=== PATIENT | female | born 1960 | race Caucasian/White ===

== ENCOUNTER 2024-03-08 15:11 | Outpatient (AMB) | payer OTHER, SELFPAY ==
--- NOTE | 2024-03-08 15:15 | HO.NEPHOV ---
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 She has been on lisinopril 20 mg and hydrochlorothiazide 25 mg a day for last 5 years. There has been no recent change in her medications. Ongoing medical problems include as above and in addition to that she has obstructive sleep apnea, rheumatoid arthritis. She does not take any NSAIDs. PENDING SALE TO [facility] Medical History (Updated 03/08/24 @ 15:49 by Tulio Jacobs MD) Type 2 diabetes mellitus Kidney disease Diabetes Severe obesity H/O screening mammography Rheumatoid arthritis Osteoarthritis of knee Obstructive sleep apnea NAFLD (nonalcoholic fatty liver disease) Morbid obesity Microalbuminuria Hypertension Hyperlipemia Matteo thyroiditis Fibromyalgia Elevated alkaline phosphatase level CKD (chronic kidney disease), stage I Acid indigestion Surgical History History of carpal tunnel release H/O arthroscopy of knee History of cholecystectomy History of appendectomy H/O endoscopy (~01/2011) H/O colonoscopy (~12/2021) Family History Mother Atrial fibrillation Diabetes mellitus Father Diabetes mellitus Review of Systems Const Denies fever(s) and Denies weight loss Card Denies chest pain Resp Denies cough and Denies hemoptysis GI Denies abdominal pain, Denies diarrhea and Denies nausea Musc Denies back pain Neuro Denies focal weakness Physical Exam Vital Signs: Last Vital Signs Pulse 104 H 03/08/24 15:20 BP 90/62 03/08/24 15:20 Pulse Ox 99 03/08/24 15:20 Oxygen Delivery Method Room Air 03/08/24 15:20 BMI result Body Mass Index 53.3 Awake. Comfortable. Neck is supple. Mucosa moist. Lungs clear Heart S1-S2 heard no gallop. Abdomen soft. Extremities no edema. No involuntary movements. No myoclonus. Results Reviewed Results Reviewed: Creatinine 1.13. Serum electrolytes normal. Nephrology Results: No Data to Display Assessment & Plan Assessment & Plan (1) Kidney disease: Code(s): N28.9 - Disorder of kidney and ureter, unspecified Category: Medical Plan 61-year-old man with a history of hypertension no diabetes medicine obesity with mild CKD. She was relatively low blood pressure. I suspect she has hypoperfusion contributing to decline in renal function. Recently had a renal ultrasonogram which did not reveal any obstruction. Underlying glomerul0 nephritis and interstitial disease seem unlikely, nevertheless we will rule that out. Recommendation Decrease hydrochlorothiazide from 20 mg daily down to 12.5 mg daily. Recheck renal panel in the next 2 weeks. The meantime encouraged her to stay on low-sodium diet Continue with same dose of lisinopril. Encouraged weight loss. Ordered basic urine studies including urine protein creatinine ratio. Orders: Orders Creatinine Urine 2 Weeks N28.9 - Disorder of kidney and ureter, unspecified UA and rflx microscopic 2 Weeks N28.9 - Disorder of kidney and ureter, unspecified Basic Metabolic Panel 2 Weeks N28.9 - Disorder of kidney and ureter, unspecified Total Protein Urine Random 2 Weeks N28.9 - Disorder of kidney and ureter, unspecified Coding Level of Care Code New Pt Level 5 (02999) Diagnoses Kidney disease N28.9
[2024-03-08 15:20] VITALS: BP 90/62; PULSE 104; O2SAT 99; BMI 53.3
== END 2024-03-08 15:41 | disposition home or self-care (01) ==
PROVIDERS: PCP Family Medicine; Referring Provider Family Medicine; Visit Provider Internal Medicine Hypertension Specialist
DX: I12.9 Hypertensive chronic kidney disease with stage 1 through stage 4 chronic kidney disease, or unspecified chronic kidney disease (principal); E11.22 Type 2 diabetes mellitus with diabetic chronic kidney disease; N18.2 Chronic kidney disease, stage 2 (mild)
CPT/HCPCS: 99204

== ENCOUNTER → 2024-03-08 15:11 | Outpatient (BNVA) | payer OTHER, SELFPAY | PROVIDERS: PCP Family Medicine; Referring Provider Family Medicine; Visit Provider Internal Medicine Hypertension Specialist | DX: I12.9 Hypertensive chronic kidney disease with stage 1 through stage 4 chronic kidney disease, or unspecified chronic kidney disease (principal); E11.22 Type 2 diabetes mellitus with diabetic chronic kidney disease; N18.2 Chronic kidney disease, stage 2 (mild); N28.9 Disorder of kidney and ureter, unspecified | CPT/HCPCS: 99202 ==

== ENCOUNTER 2024-03-22 10:46 | Outpatient (REF) | payer OTHER, SELFPAY ==
[2024-03-22 12:56] LABS: Anion Gap 14 (12-20); Blood Urea Nitrogen 19 mg/dL (9-16); Calcium 9.8 mg/dL (8.4-10.2); Carbon Dioxide 23 mmol/L (22-29); Chloride 106 mmol/L (96-108); Estimated Glomerular Filt Rate 44; Glucose Random 163 mg/dL (60-115); Potassium 4.8 mmol/L (3.3-5.1); Sodium 138 mmol/L (135-145)
[2024-03-22 13:19] LABS: Appearance Urine Clear; Color Urine Yellow; Glucose Urine UA >=1000 mg/dL (Negative); Leukocyte Esterase Urine Negative (Negative); Nitrite Urine Negative (Negative); Specific Gravity - Urine 1.015 (1.005-1.025); UMIC TRIGGER UA YES; Urine Blood Negative (Negative); Urine Ketones Negative (Negative); Urine Protein Negative (Neg-Trace)
[2024-03-22 13:23] LABS: Bacteria Urine 2+ (None Seen); RBC Urine 0-2 /HPF (0-2)
[2024-03-22 14:52] LABS: Creatinine Urine 47.44 mg/dL; Total Protein Urine Random < 7 mg/dL (<12)
== END 2024-03-22 10:47 | disposition home or self-care (01) ==
LOC: HO.LAB 10:46
PROVIDERS: PCP Family Medicine; Visit Provider Internal Medicine Hypertension Specialist
DX: N28.9 Disorder of kidney and ureter, unspecified (principal)
CPT/HCPCS: 36415; 80048; 81001; 82570; 84156

== ENCOUNTER 2024-03-27 14:51 | Outpatient (AMB) | payer OTHER, SELFPAY ==
[2024-03-27 14:53] VITALS: BP 106/72; PULSE 106; O2SAT 97; BMI 53.3
--- NOTE | 2024-03-27 14:53 | HO.NEPHOV ---
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 She has been on lisinopril 20 mg and hydrochlorothiazide 25 mg a day for last 5 years. There has been no recent change in her medications. Ongoing medical problems include as above and in addition to that she has obstructive sleep apnea, rheumatoid arthritis. She does not take any NSAIDs. 03/27/2024. Overall she is feeling well. After lowering hydrochlorothiazide to 12.5 mg blood pressure is better. No new complaints. [facility] Medical History (Updated 03/08/24 @ 15:49 by Tulio Jacobs MD) Type 2 diabetes mellitus Kidney disease Diabetes Severe obesity H/O screening mammography Rheumatoid arthritis Osteoarthritis of knee Obstructive sleep apnea NAFLD (nonalcoholic fatty liver disease) Morbid obesity Microalbuminuria Hypertension Hyperlipemia Matteo thyroiditis Fibromyalgia Elevated alkaline phosphatase level CKD (chronic kidney disease), stage I Acid indigestion Surgical History History of carpal tunnel release H/O arthroscopy of knee History of cholecystectomy History of appendectomy H/O endoscopy (~01/2011) H/O colonoscopy (~12/2021) Family History Mother Atrial fibrillation Diabetes mellitus Father Diabetes mellitus Physical Exam Vital Signs: Last Vital Signs Pulse 106 H 03/27/24 14:53 BP 106/72 03/27/24 14:53 Pulse Ox 97 03/27/24 14:53 Oxygen Delivery Method Room Air 03/27/24 14:53 BMI result Body Mass Index 53.3 Const General: comfortable; No acute distress Orientation/consciousness: patient oriented x3 Eyes General: appearance normal, both eyes and all related structures Visual Godfrey: normal visual godfrey by confrontation Neck Neck: Yes supple and Yes no JVD Resp Effort & Inspection: normal respiratory effort and respiratory effort not decreased Auscultation: rhonchi Cardio Palpation: no palpable S3 and no palpable S4 Heart sounds: no rubs GI Inspection: Yes normal to inspection Palpation (GI): Soft to palpation Percussion: Yes normal to percussion Auscultation: normal bowel sounds General: Yes no CVA tenderness Back/Spine/Pelvis Back: no CVA tenderness Skin General skin exam: no petechiae and no purpura Neuro General: patient oriented x3 and no focal motor deficits Extrem General: No clubbing and No edema Results Reviewed Nephrology Results: Sodium 138 mmol/L (135-145) 03/22/24 Potassium 4.8 mmol/L (3.3-5.1) 03/22/24 Chloride 106 mmol/L (96-108) 03/22/24 Carbon Dioxide 23 mmol/L (22-29) 03/22/24 BUN 19 mg/dL (9-16) H 03/22/24 Creatinine 1.24 mg/dL (0.5-1.4) 03/22/24 Calcium 9.8 mg/dL (8.4-10.2) 03/22/24 Urine Protein Negative mg/dL (Neg-Trace) 03/22/24 Urine Creatinine 47.44 mg/dL 03/22/24 Assessment & Plan Assessment & Plan (1) Kidney disease: Code(s): N28.9 - Disorder of kidney and ureter, unspecified Category: Medical Plan 61-year-old woman with a history of hypertension no diabetes medicine, obesity with mild CKD. She was relatively low blood pressure. I suspect she has hypoperfusion contributing to decline in renal function. Recently had a renal ultrasonogram which did not reveal any obstruction. Underlying glomerulo nephritis and interstitial disease seem unlikely, based on the bland urine sediments Recommendation Since the blood pressure is relatively low, Decrease lisinopril from 20 mg down to 10 mg a day especially since she has no significant proteinuria. Recheck renal panel in the next 2 -4 weeks. The meantime encouraged her to stay on low-sodium diet Encouraged weight loss. Orders: Orders Basic Metabolic Panel 4 Weeks N28.9 - Disorder of kidney and ureter, unspecified Medications: Changed From lisinopril 10 mg PO DAILY To lisinopril 10 mg PO DAILY 90 tabs 1RF From hydrochlorothiazide 12.5 mg PO DAILY To hydrochlorothiazide 12.5 mg PO DAILY 90 tabs 1RF Coding Level of Care Code Est Pt Level 4 (92643) Diagnoses Kidney disease N28.9
== END 2024-03-27 15:09 | disposition home or self-care (01) ==
PROVIDERS: PCP Family Medicine; Visit Provider Internal Medicine Hypertension Specialist
DX: N28.9 Disorder of kidney and ureter, unspecified (principal); E11.8 Type 2 diabetes mellitus with unspecified complications
CPT/HCPCS: 99213

== ENCOUNTER → 2024-03-27 14:51 | Outpatient (BNVA) | payer OTHER, SELFPAY | PROVIDERS: PCP Family Medicine; Visit Provider Internal Medicine Hypertension Specialist | DX: N28.9 Disorder of kidney and ureter, unspecified (principal); E11.22 Type 2 diabetes mellitus with diabetic chronic kidney disease; I12.9 Hypertensive chronic kidney disease with stage 1 through stage 4 chronic kidney disease, or unspecified chronic kidney disease; N18.1 Chronic kidney disease, stage 1 | CPT/HCPCS: 99212 ==

== ENCOUNTER 2024-04-25 12:36 | Outpatient (REF) | payer OTHER, SELFPAY ==
[2024-04-25 13:23] LABS: Appearance Urine Clear; Color Urine Straw; Glucose Urine UA Negative (Negative); Leukocyte Esterase Urine Negative (Negative); Nitrite Urine Negative (Negative); Specific Gravity - Urine 1.015 (1.005-1.025); Urine Blood Negative (Negative); Urine Ketones Negative (Negative); Urine Protein Negative (Neg-Trace)
[2024-04-25 14:04] LABS: Anion Gap 16 (12-20); Blood Urea Nitrogen 34 mg/dL (9-16); Calcium 9.8 mg/dL (8.4-10.2); Carbon Dioxide 24 mmol/L (22-29); Chloride 99 mmol/L (96-108); Estimated Glomerular Filt Rate 35; Potassium 4.6 mmol/L (3.3-5.1); Sodium 134 mmol/L (135-145)
[2024-04-25 14:06] LABS: Glucose Random 445 mg/dL (60-115)
== END 2024-04-25 12:37 | disposition home or self-care (01) ==
LOC: HO.LAB 12:36
PROVIDERS: PCP Family Medicine; Visit Provider Internal Medicine Hypertension Specialist
DX: N28.9 Disorder of kidney and ureter, unspecified (principal)
CPT/HCPCS: 36415; 80048; 81003

== ENCOUNTER 2024-05-21 15:19 | Outpatient (AMB) | payer OTHER, SELFPAY ==
[2024-05-21 15:21] VITALS: BP 90/62; PULSE 121; O2SAT 98; BMI 53.7
--- NOTE | 2024-05-21 15:21 | HO.NEPHOV_ITS ---
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 Required: No Accompanied by: Self / Same As Patient Allergies iodine Allergy (Unknown, Verified 05/21/24 15:23) Unknown liraglutide [From Victoza] Allergy (Unknown, Verified 05/21/24 15:23) Unknown semaglutide [From Ozempic] Allergy (Unknown, Verified 05/21/24 15:23) Unknown sulfa drugs Allergy (Unknown, Uncoded 03/05/24 15:57) Unknown Medication List - Last Reconciled 05/21/24 by Tulio Jacobs MD dulaglutide (Trulicity) mg subcut duloxetine 60 mg PO DAILY duloxetine (Cymbalta) 40 mg PO BID empagliflozin (Jardiance) 25 mg PO DAILY folic acid 1 mg PO DAILY gabapentin 200 mg PO BID glimepiride 8 mg PO DAILY hydroxychloroquine 300 mg PO QWEEK insulin degludec (Tresiba FlexTouch U-100 insulin) units subcut levothyroxine 100 mcg PO .weekly levothyroxine 150 mcg PO DAILY metformin 1,000 mg PO BID methotrexate sodium 7.5 mg PO QWEEK omeprazole 20 mg PO DAILY pravastatin 40 mg PO DAILY HPI Comments Details: Daphney is a pleasant middle-aged woman with a history of longstanding hypertension diabetes mellitus and obesity who was found to have elevated serum creatinine of 1.13 with EGFR of 54 mL/minute and hence this referral. She has been on lisinopril 20 mg and hydrochlorothiazide 25 mg a day for last 5 years. There has been no recent change in her medications. Ongoing medical problems include as above and in addition to that she has obstructive sleep apnea, rheumatoid arthritis. She does not take any NSAIDs. 03/27/2024. Overall she is feeling well. After lowering hydrochlorothiazide to 12.5 mg blood pressure is better. No new complaints. 05/20/2024. No specific complaints today. [facility] Medical History (Updated 03/08/24 @ 15:49 by Tulio Jacobs MD) Type 2 diabetes mellitus Kidney disease Diabetes Severe obesity H/O screening mammography Rheumatoid arthritis Osteoarthritis of knee Obstructive sleep apnea NAFLD (nonalcoholic fatty liver disease) Morbid obesity Microalbuminuria Hypertension Hyperlipemia Matteo thyroiditis Fibromyalgia Elevated alkaline phosphatase level CKD (chronic kidney disease), stage I Acid indigestion Surgical History History of carpal tunnel release H/O arthroscopy of knee History of cholecystectomy History of appendectomy H/O endoscopy (~01/2011) H/O colonoscopy (~12/2021) Family History Mother Atrial fibrillation Diabetes mellitus Father Diabetes mellitus Physical Exam Vital Signs: Last Vital Signs Pulse 121 H 05/21/24 15:21 BP 90/62 05/21/24 15:21 Pulse Ox 98 05/21/24 15:21 Oxygen Delivery Method Room Air 05/21/24 15:21 BMI result Body Mass Index 53.7 Comfortable Neck supple no JVD. Lungs entry equal no rales. Heart S1-S2 heard no gallop or rub. Abdomen soft nontender. Neuro alert awake oriented. No asterixis. Extremities no edema. Results Reviewed Nephrology Results: Sodium 134 mmol/L (135-145) L 04/25/24 Potassium 4.6 mmol/L (3.3-5.1) 04/25/24 Chloride 99 mmol/L (96-108) 04/25/24 Carbon Dioxide 24 mmol/L (22-29) 04/25/24 BUN 34 mg/dL (9-16) H 04/25/24 Creatinine 1.50 mg/dL (0.5-1.4) H 04/25/24 Calcium 9.8 mg/dL (8.4-10.2) 04/25/24 Urine Protein Negative mg/dL (Neg-Trace) 04/25/24 Urine Creatinine 47.44 mg/dL 03/22/24 Assessment & Plan Assessment & Plan (1) Kidney disease: Code(s): N28.9 - Disorder of kidney and ureter, unspecified Category: Medical (2) Hypertension: Code(s): I10 - Essential (primary) hypertension Category: Medical Plan 61-year-old woman with a history of hypertension no diabetes medicine, obesity with mild CKD. She was relatively low blood pressure. Creatinine is bumped up to 1.5 I suspect she has hypoperfusion contributing to decline in renal function. Recently had a renal ultrasonogram which did not reveal any obstruction. Underlying glomerulo nephritis and interstitial disease seem unlikely, based on the bland urine sediments Recommendation Since the blood pressure is relatively low, I will discontinue lisinopril 10 mg daily, especially since she has no significant proteinuria. Recheck renal panel in the next 2 -4 weeks. The meantime encouraged her to stay on low-sodium diet Encouraged weight loss. Orders: Orders Basic Metabolic Panel 2 Weeks I10 - Essential (primary) hypertension, N28.9 - Disorder of kidney and ureter, unspecified Medications: Discontinued lisinopril Discontinued Reason: Doctor's Order 10 mg PO DAILY 90 tabs 1RF hydrochlorothiazide Discontinued Reason: Patient no longer taking 12.5 mg PO DAILY 90 tabs 1RF Coding Level of Care Code Est Pt Level 4 (85168) Diagnoses Kidney disease N28.9 Hypertension I10
== END 2024-05-21 15:34 | disposition home or self-care (01) ==
PROVIDERS: PCP Family Medicine; Visit Provider Internal Medicine Hypertension Specialist
DX: I12.9 Hypertensive chronic kidney disease with stage 1 through stage 4 chronic kidney disease, or unspecified chronic kidney disease (principal); E11.22 Type 2 diabetes mellitus with diabetic chronic kidney disease; N18.2 Chronic kidney disease, stage 2 (mild)
CPT/HCPCS: 99214

== ENCOUNTER → 2024-05-21 15:19 | Outpatient (BNVA) | payer OTHER, SELFPAY | PROVIDERS: PCP Family Medicine; Visit Provider Internal Medicine Hypertension Specialist | DX: I12.9 Hypertensive chronic kidney disease with stage 1 through stage 4 chronic kidney disease, or unspecified chronic kidney disease (principal); E11.22 Type 2 diabetes mellitus with diabetic chronic kidney disease; E66.9 Obesity, unspecified; N18.9 Chronic kidney disease, unspecified; Z68.43 Body mass index [BMI] 50.0-59.9, adult | CPT/HCPCS: 99212 ==

== ENCOUNTER 2024-06-11 14:11 | Outpatient (REF) | payer OTHER, SELFPAY ==
--- OUTSIDE RECORDS SUMMARY | 2024-06-11 14:14 | XMS_ITS | Data Portability ---
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 Plan of Treatment Reminders Order Date Submit Date Provider Last Modified By Organization Details Last Modified Time Details Appointments None recorded. Lab FSH/estra diol 2012 013 BRITTANIE Not available 3 08:18:05 vitamin D 2012 013 BRITTANIE Not available 3 08:18:05 CBC w/diff & platelet 2012 013 BRITTANIE Not available 3 08:18:05 lyme screen 2012 013 BRITTANIE Not available 3 08:18:05 occult blood, screen 2012 013 [email or web address] 1 In-Office Order, Internal Use Only DO Not Attach Compendium DO Not Attach Compendium, Do Not Delete/merge, [id number] 3 10:25:05 cytology, Pap smear 2012 013 [email or web address] [facility], Cytopathology Service, [address] [place], [address], 3 09:03:47 pap test, thinprep, cervical 2014 015 BRITTANIE [facility], Cytopathology Service, [address] [place], [address], 5 11:16:19 fecal occult blood, stool 2014 015 [email or web address] 1 In-Office Order, Internal Use Only DO Not Attach Compendium DO Not Attach Compendium, Do Not Delete/merge, [id number] 5 08:34:35 pap test, thinprep, cervical 2016 017 [facility], Cytopathology Service, [address] [place], [address], 7 08:58:04 fecal occult blood, stool 2016 017 [email or web address] 1 In-Office Order, Internal Use Only DO Not Attach Compendium DO Not Attach Compendium, Do Not Delete/merge, [id number] 7 08:25:08 Referral None recorded. Procedures None recorded. Surgeries None recorded. Imaging MAMMO, screening , digital, bilateral 2012 013 [facility] (Radiology), [facility] [place], [address], 3 09:04:42 bone density study [address] [facility] (Radiology), [facility] [place], [address], 6 07:50:51 MAMMO, screening , digital, bilateral 2014 015 [facility] ([facility]), [address] [place], [address], 6 07:50:50 MAMMO, screening , digital, bilateral 2016 017 [facility] ([facility]), [address] [place], [address], 8 13:18:34 US, pelvis, transabdo elva + transvagi nal - right sided pelvic disomfort for a few weeks 2016 017 BRITTANIE [facility] ([facility]), [address] [place], [address], 7 13:03:41 Medication Orders nystatin 100,000 unit/gram topical powder 2014 015 [email or web address] [facility], [address], [place], [address], 7 08:06:40 clotrimaz ole-betam ethasone 1 %-0.05 % topical cream 2016 017 INTERFACE [facility], [address], [place], [address], 08:31:31 Patient TargetsNo targets recorded. Patient Instructions Encounter Date Encounter Id Patient Instructions Last Modified By Organization Details Last Modified Time 02/01/2013 [id number] She has what is possibly postmenopausal bleeding, check FSH and estradiol. If in the menopause range then she will need an ultrasound and an EMB, she is aware. She is overdue for mammogram, will go for this. She has fatigue and some adenopathy, check Lyme, cbc, and vitamin D. She appears to be doing well. She is advised to get 1500 mg of calcium daily into her diet and supplements combined. There is a health benefit with adequate vitamin D supplementation to at least 400 units daily, daily aerobic exercise of 30 minutes, and stress reduction. Monthly self breast exam was taught, and stressed, and is advised to call if she discovers any new mass in the breast. ?? Seat belt use for herself and passengers are advised. There are significant health benefits of becoming and remainig fit, with an optimal BMI. There is a potential reduction in chronic discomfort, diminished risks of hypertension, diabetes, and heart disease with the proper weight management. With a recommended BMI there can be improved mobility as she ages. Strategies to reach and maintain her target weight were discussed in detail. Not available 02/01/2013 10:25:05 02/12/2013 [id number] anemia: care instructions [email or web address] Not available 02/13/2013 07:46:17 She and I spoke at length about nutrition and health, exercise, and life longevity.?? She is having fatigue and we discussed how anemia plays into this. She is in process of investigation of the anemia with her PCP.?? He also checked her mild adenopathy and felt it was not clinically significant, but??he will follow it. ?? We discussed chronic illness and the benefit of a low fat, high fiber diet, with good balance. We also discussed the various vitamins and supplements that she might benefit from, including vitamin D, a good multivitamin, fish oil, and evening oil of primrose.?? She is advised to get 1500 mg of calcium daily into her diet and supplements combined. We discussed the benefits of adequate vitamin D supplementation to at least 2000 units daily, daily aerobic exercise of 30 minutes, and stress reduction. ?? The significant health benefits of becoming and remainig fit, with an optimal BMI, were also discussed. We discussed the potential reduction in chronic discomfort, the diminished risks of hypertension, diabetes, and heart disease with the proper weight management, and improved mobility as she ages. Strategies to reach and maintain her target weight wer discussed in detail, all questions answered. Face to face discussion 25 minutes Not available 02/12/2013 16:39:52 12/13/2014 [id number] She is here for annual exam, is doing well.?? Her anemia was followed by her doctor, no etiology was found, but it spontaneously resolved. She began taking a new diabetes med a few month ago, now she has nasty burps and gi upset, she is in a work up for this. Offered weight management , she will call if she elects to do this, is presently dong weight watchers and has lost 32 pounds in a year. She has a vitamin d deficiency, is taking a daily supplement. never had a bone density test, will order. She appears to be doing well. She is advised to get 1500 mg of calcium daily into her diet and supplements combined. There is a health benefit with adequate vitamin D supplementation to at least 400 units daily, daily aerobic exercise of 30 minutes, and stress reduction. Monthly self breast exam was taught, and stressed, and is advised to call if she discovers any new mass in the breast. ?? Seat belt use for herself and passengers are advised. There are significant health benefits of becoming and remainig fit, with an optimal BMI. There is a potential reduction in chronic discomfort, diminished risks of hypertension, diabetes, and heart disease with the proper weight management. With a recommended BMI there can be improved mobility as she ages. Strategies to reach and maintain her target weight were discussed in detail. Not available 12/13/2014 08:34:36 10/22/2016 [id number] self breast exam education [email or web address] Not available 10/22/2016 08:56:00 She is here for annual exam. Her fibromyalgia is stable, her diabetes improved with Trulicity. Her was just disabled from [facility] due to his back injury at work. Her hot flashes and night sweats have improved well. She requests rx for skin candidiasis. LAst bone denity was 2 years ago and normal. She appears to be doing well. She is advised to get 1500 mg of calcium daily into her diet and supplements combined. There is a health benefit with adequate vitamin D supplementation to at least 400 units daily, daily aerobic exercise of 30 minutes, and stress reduction. Monthly self breast exam was taught, and stressed, and is advised to call if she discovers any new mass in the breast. Seat belt use for herself and passengers are advised. There are significant health benefits of becoming and remainig fit, with an optimal BMI. There is a potential reduction in chronic discomfort, diminished risks of hypertension, diabetes, and heart disease with the proper weight management. With a recommended BMI there can be improved mobility as she ages. Strategies to reach and maintain her target weight were discussed in detail. Not available 10/22/2016 08:34:38 Reason for Referral None Reported. Results Created Date Observation Date Name Description Value Unit Range Abnormal Flag Note LastModifiedBy Organization Detail LastModifiedTime 10/22/2016 fecal occul t blood , stool Occult Blood negati ve Not Available In-Office Order Internal Use Only DO Not Attach Compendium DO Not Attach Compendium, Do Not Delete/merge, [id number] 10/22/2016 08:17:03 12/13/2014 fecal occul t blood , stool Occult Blood negati ve Not Available In-Office Order Internal Use Only DO Not Attach Compendium DO Not Attach Compendium, Do Not Delete/merge, [id number] 12/13/2014 08:04:22 02/01/2013 occul t blood , scree n Occult Blood negati ve Not Available In-Office Order Internal Use Only DO Not Attach Compendium DO Not Attach Compendium, Do Not Delete/merge, [id number] 02/01/2013 08:29:40 02/02/20 13 02/01/2013 pap1c ase [id number] thinp rep Pap, image d: negat khai for squam ous intra epith elial lesio n and malig avery . braxton jones zack, CT(as cp) (case elect nilay rendon martinez d 02 05 2013) adequ acy: satis facto ry. endoc ervic al trans forma tion zone compo nent prese nt. sourc e: thinp rep Pap, cervi berenice, image d clini berenice infor matio n: HPV if diagn osis of ASCUS . LMP 3 * cytop athol ogy servi nancie provi ded by [facility] at the above addre ss. Not Available [facility], Cytopathology Service [address] [place], [address], 02/06/2013 09:36:28 12/14/19 15 12/13/2014 pap, LB [id number] ThinP rep Pap, Image d: NEGAT KHAI FOR SQUAM OUS INTRA EPITH ELIAL LESIO N AND MALIG AVERY . Gem Fallon ams, CT( CP) (Case elect nilay rendon martinez d 12 17 2014) ADEQU ACY: Satis facto ry. Endoc ervic al/tr ansfo rmati on zone compo nent prese nt. SOURC E: ThinP rep Pap, Cervi berenice, Image d CLINI BERENICE INFOR MATIO N: HPV If Diagn osis of ASCUS . LMP , LPS NEG * Cytop athol ogy servi nancie provi ded by [facility] at the above addre ss. Not Available [facility], Cytopathology Service [address] [place], [address], 12/17/2014 11:16:19 10/23/19 17 10/22/2016 pap, LB [id number] ThinP rep Pap, Image d: NEGAT KHAI FOR SQUAM OUS INTRA EPITH ELIAL LESIO N AND MALIG AVERY . Mikhail Tavares a, CT( CP) (Case elect nilay rendon martinez d 10 25 2016) ADEQU ACY: Satis facto ry. Endoc ervic al/tr ansfo rmati on zone compo nent prese nt. SOURC E: ThinP rep Pap HPV IF ASCUS , Cervi berenice, Image d: CLINI BERENICE INFOR MATIO N: HPV If Diagn osis of ASCUS . LMP NEG, MENOP AUSE Not Available [facility], Cytopathology Service [address] [place], [address], 10/25/2016 13:41:05 05/02/20 13 04/24/2013 imagi ng/di agnos tic resul t No observ ation record ed. BRITTANIE Not Available 2012 11:35:39 12/21/19 15 12/11/2014 imagi ng/di agnos tic resul t No observ ation record ed. [facility] Not Available 2015 07:31:14 01/01/20 15 12/18/2014 imagi ng/di agnos tic resul t No observ ation record ed. [facility] Not Available 2014 08:22:42 02/16/20 16 02/06/2016 MAMMO , scree harleen, digit al, bilat eral No observ ation record ed. [facility] Not Available 2015 15:12:30 10/31/19 17 10/29/2016 US, pelvi s, trans abdom inal + trans vagin al [place], [address], 11/02/2016 10:02:22 10/19/19 18 MAMMO , scree harleen, digit al, bilat eral No observ ation record ed. Not Available 09/26 13:45:36 Result Notes None recorded. Problems Name Problem SNOMED Code Status Onset Date Resolution Date Notes Provider Name and Address Organization Details Recorded Time Candidiasis of skin 04331523 Active Shikha Garcia MD [address], [place], [address] , [place] [facility], 5 08:34:35 Fibromyalgia 829602342 Active 2016 [place] in [facility], 7 08:16:42 Anemia 939776883 Active Not Available [facility] 3 03:01:07 Postmenopausa l bleeding 43775859 Active Not Available [facility] 3 03:01:07 Menopausal syndrome 538937096 Active Shikha Garcia MD [address], [place], [address] , [place] - [facility], 5 08:34:35 Malaise and fatigue 150441312 Active Not Available [facility] 3 03:01:07 Vitamin D deficiency 30797505 Active Not Available [facility] 3 03:01:07 Problem Notes None recorded. Procedures Surgical History Date Name Laterality Status Provider Name and Address Organization Details Recorded Time 12/19/19 15 Most Recent Bone Density completed Luh Piña in [facility], 10/22/2016 08:15:48 06/27/19 04 Other completed Jeanine Piña in [facility], 02/01/2013 08:43:21 06/27/19 00 Appendectomy completed Jeanine Piña in [facility], 02/01/2013 08:43:21 06/27/18 98 Other completed Jeanine Piña in [facility], 02/01/2013 08:43:21 06/27/18 92 Tubal Ligation completed Jeanine Piña in [facility], 02/01/2013 08:43:21 06/27/18 92 Cholecystectomy completed Jeanine Piña in [facility], 02/01/2013 08:43:21 06/27/18 90 Caesarean Section completed Jeanine Piña in [facility], 02/01/2013 08:43:21 Imaging Results Imaging Date Name Status LastModified by Organization Details LastModified Time 04/24/2013 imaging/diagnostic result completed BRITTANIE Information not available 05/02/2013 11:35:39 12/11/2014 imaging/diagnostic result completed [facility] Information not available 12/01/2015 07:31:14 12/18/2014 imaging/diagnostic result completed [facility] Information not available 12/31/2014 08:22:42 02/06/2016 MAMMO, screening, digital, bilateral completed [facility] Information not available 02/16/2016 15:12:30 10/29/2016 US, pelvis, transabdominal + [place], [address], 11/02/2016 10:02:22 10/18/2017 MAMMO, screening, digital, bilateral completed Information not available 10/18/2017 13:45:36 Procedure Notes None recorded. Medical Equipment None Reported. Allergies Allergen ID Allergen Name Allergen Category Reaction Reaction Severity Criticality Documentation Date Start Date Code Code System Note Provider Name and Address Organization Details Recorded Time 9341 iodine medicatio n other Not available Not available 02/01/2013 5933 RxNorm verti go Jeanine hig[place]botham [place] - [facility], 3 08:43:21 Medications Name Sig Start Date Stop Date Status Note LastModified by Organization Details LastModified Time freestyle mis lancets active Not Available Not Available Not Available freestyle mis lite active Not Available Not Available Not Available freestyle gianna lite active Not Available Not Available Not Available metformin 500 mg tablet Take 2 tablets twice a day by oral route. active Not Available Not Available No t Available levothyroxi ne 137 mcg tablet active Not Available Not Available Not Available azithromyci n 250 mg tablet 10/22 completed Not Available Not Available Not Available lisinopril 20 mg tablet active Not Available Not Available Not Available OneTouch Ultra Test strips active Not Available Not Available Not Available clotrimazol e-betametha sone 1 %-0.05 % topical cream APPLY TO THE AFFECTED AND SURROUNDI NG AREAS OF SKIN BY TOPICAL ROUTE 2 TIMES PER DAY IN THE MORNING AND EVENING 2016 active Not Available Not Available Not Avai lable lisinopril 10 mg tablet Take 2 tablets every day by oral route. active Not Available Not Available No t Available glimepiride 4 mg tablet active Not Available Not Available Not Available omeprazole 20 mg capsule,del ayed release Take 2 capsules every day by oral route. active Not Available Not Available No t Available nystatin 100,000 unit/gram topical powder APPLY TO THE AFFECTED AREA(S) BY TOPICAL ROUTE 2 TIMES PER DAY 10/22 completed Not Available Not Available Not Available levothyroxi ne 112 mcg tablet Take 1 tablet every day by oral route. active Not Available Not Available No t Available oxycodone 5 mg tablet 10/22 completed Not Available Not Available Not Available cyclobenzap rine 5 mg tablet active Not Available Not Available Not Available tizanidine 2 mg capsule active prn Not Available Not Available Not Available zinc 10/22 completed Not Available Not Available Not Available Aspir-81 active Not Available Not Avai lable Not Available Stool Softener active qod Not Available Not Available Not Available Vitamin D3 active Not Available Not Av ailable Not Available Calcium 500 active Not Available Not A vailable Not Available Fish Oil 1,000 mg capsule active Not Available Not Available Not Available omeprazole 20 mg tablet,teresa yed release active Not Available Not Available Not Available turmeric (bulk) 10/22 completed Not Available Not Available Not Available Janumet XR 100 mg-1,000 mg tablet,exte nded release 10/22 completed Not Available Not Available Not Available hydrocodone 2.5 mg-acetamin ophen 325 mg tablet Take 1 tablet every 4 hours by oral route. 10/22 completed Not Available Not Available Not Available EpiPen 2-Ricardo 0.3 mg/0.3 mL injection, auto-inject or active Not Available Not Available Not Available Multi Vitamin active Not Available Not Available Not Available Bydureon 2 mg/0.65 mL subcutaneou s pen injector active Not Available Not Available Not Available Trulicity 0.75 mg/0.5 mL subcutaneou s pen injector active Not Available Not Available Not Available Vitals Date Recorded Body height Body weight Body mass index (BMI) Heart rate Systolic blood pressure Diastolic blood pressure Provider Name and Address Organization Details Last Updated DateTime 3 152.4 cm 501468. 98788 g 51.9 kg/m2 62 /min 144 mm[Hg] 61 mm[Hg] Jeanine Piña in [facility], 3 08:29:40 Date Recorded Body height Body weight Body mass index (BMI) Heart rate Systolic blood pressure Diastolic blood pressure Provider Name and Address Organization Details Last Updated DateTime 3 152.4 cm 274595. 625499 g 51.5 kg/m2 81 /min 139 mm[Hg] 64 mm[Hg] Jeanine Piña in [facility], 3 10:33:54 Date Recorded Body weight Heart rate Body mass index (BMI) Body height Systolic blood pressure Diastolic blood pressure Provider Name and Address Organization Details Last Updated DateTime 5 974488. 21118 g 88 /min 47.7 kg/m2 152.4 cm 135 mm[Hg] 78 mm[Hg] Jeanine Piña in [facility], 5 08:03:44 Date Recorded Body weight Heart rate Body height Body mass index (BMI) Systolic blood pressure Diastolic blood pressure Provider Name and Address Organization Details Last Updated DateTime 7 834108. 89 g 72 /min 152.4 cm 48.9 kg/m2 145 mm[Hg] 66 mm[Hg] Luh Sandersonparth Piña in [facility], 7 08:14:04 Social History Question Answer Notes LastModified by Organizat ion Details LastModified Time Tobacco Smoking Status Never Smoker Not Available [facility] 04/29/2020 03:19:37 What Is Your Level Of Alcohol Consumption? None [id number] Information not available 04/29/2020 What Is Your Level Of Caffeine Consumption? Occasional [id number] Information not available 04/29/2020 What Type Of Diet Are You Following? REGULAR [id number] Information not available 04/29/2020 Which Illicit Or Recreational Drugs Have You Used? No [id number] Information not available 04/29/2020 Do You Reside In Or Have You Traveled To An Area Where Ebola Virus Transmission Is Active? 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 [id number] Information not available 04/29/2020 How Many Days In The Past Year Have You Had A Heavy Drinking Consumption (4+ Female, 5+ Male)? 0 Information not available 10/22/2016 High Number Of Sexual Partners No Information not available 10/22/2016 To Which Gender Do You Self-identify? Female Information not available 10/22/2016 Marital Status freya Love n not available 02/01/2013 Are You Sexually Active? No [id number] Information not available 04/29/2020 How Much Tobacco Do You Smoke? No [id number] Information not available 04/29/2020 General Stress Level High Disabled Information not available 10/22/2016 Have You Recently (within The Last 12 Weeks, Or During A Current ) Traveled To Or Lived In A Zika-affected Area? No Information not available 10/22/2016 Sex: Unknown Functional Status Question Answer Note LastModified by Organization D etails LastModified Time What is your exercise level? Moderate [id number] Information not available 04/29/2020 Mental Status None recorded. Family History Relationship Description Onset Age of this Age Resolved Age Notes LastModified by Organization Details LastModified Time Father Heart disease previo usly record ed as Heart Proble m Not available 12/13/2014 08:09:35 Father Diabetes mellitus previo usly record ed as Diabet es Not available 12/13/2014 08:09:35 Mother Diabetes mellitus previo usly record ed as Diabet es Not available 12/13/2014 08:09:35 Medical History Condition Response Anesthesia complications Y High Blood Pressure Y Thyroid Problems Y Kidney or Bladder Problems N GI Problems N Depression N Lung Disease N Defects or Inherited Disease N Anemia Y History of Ovarian Cancer N History of Breast Cancer N BRCA testing in past N Osteopenia N Psychiatric Illness N Anxiety Disorder N Diabetes Y Arthritis Y Headaches or Migraines N Infertility N Asthma N History of Cancer N Endometriosis N Hepatitis N Heart Disease N Hypertension Y Osteoporosis N Gynecological History Statement/Question Response Date of LMP 08/16/2014 Most Recent Bone Density 12/18/2014 Menses Monthly N Age at Menarche 10 Current Control Method Tubal Ligat ion Age at First Child 30 Obstetrics History GPAL:G 3 P 2 0 1 2 Type Value Full Term 2 Spontaneous 1 Living 2 Total 3 Past Encounters Encounter ID Performer Location Encounter Start Date Encounter Closed Date Diagnosis/Indication Diagnosis SNOMED-CT Code Diagnosis ICD10 Code [id number] SHIKHA GARICA MD [address] [facility] [address] 02/01/2013 08:17:14 02/01/2013 12:52:13 [id number] Jeanine Bright SHIKHA GARCIA MD [address] [facility] [address] 02/12/2013 10:23:40 02/13/2013 09:23:55 [id number] SHIKHA GARCIA MD [address] [facility] [address] 12/13/2014 07:51:55 12/13/2014 09:39:09 Specialized medical examination 94612529 Screening for malignant neoplasm of rectum 973536408 Screening mammography 24 839443 Candidiasis of skin 4988 3006 Menopausal syndrome 1237 42495 [id number] MD SHIKHA Freitas MD [address] [facility] [address] 10/22/2016 08:00:50 10/22/2016 11:21:42 Specialized medical examination 80064386 Z01.419 Screening for malignant neoplasm of rectum 446786541 Z12.12 Screening mammography 24 401656 Z12.31 Candidiasis of skin 4988 3006 B37.2 Pain in pelvis 60731065 R10.2 Health Concerns Section Related Observation LastModified by Organization Detai ls LastModified Time None Recorded Concern Status LastModified by Organization Details LastModified Time None Recorded Advance Directives Directive None Recorded Payers Encounter Date Sequence Insurance Name Policy Number Policy Yan Covered Member ID Yan Member ID Guarantor Name 02/01/2013 1 [facility] ([facility] [place] [id number] Daphney Meek [id number] Daphney Meek 02/12/2013 1 [facility] ([facility] [place]) [id number] Daphney Meek [id number] Daphney Meek 12/13/2014 1 [facility] ([facility] [place]) [id number] Daphney Meek [id number] Daphney Meek 10/22/[address] [place] [address] ([facility] [place]) [id number] Tony Meek [id number] Daphney Meek Notes Date Note Type Note Provider Name and Address Organization Details Recorded Time 10/22/2016 text/html She is here for annual exam. Her fibromyalgia is stable, her diabetes improved with Trulicity. Her was just disabled from [facility] due to his back injury at work. Shikha Garcia MD [address] [place] [address],[address], [place], [id number], [place] - [facility], 10/22/2016 09:32:33 OBGyn Episode No OBEpisode recorded.
--- OUTSIDE RECORDS SUMMARY | 2024-06-11 14:14 | XMS_ITS | Continuity of Care Document ---
Author Organization [facility] Address [address] [place] [id number]- Care Team Providers Care Tire Fabric Inspector Name Role Phone Salo Landeros DO Primary Care Physician Encounter [facility] Date(s): 05/09/24 - 06/08/24 [facility] [address] [place] [id number] Encounter Type: Triage Allergies, Adverse Reactions, Alerts Substance Criticality Severity Reaction Reaction Severity Status sulfa drugs Active Ozempic (0.25 mg or 0.5 mg dose) Active iodine Active Victoza Active Immunizations Given and Recorded Vaccine Date Status Refusal Reason zoster vaccine, inactivated 10/08/21 Recorded zoster vaccine, inactivated 02/06/21 Recorded SARS-CoV-2 (COVID-19) mRNA BNT-162b2 vac 11/02/20 Recorded SARS-CoV-2 (COVID-19) mRNA BNT-162b2 vac 10/12/20 Recorded Medications Baqsimi One Pack 3 mg nasal powder = 3 mg, Naris, Left, Once, In one nostril; dose does not need to be inhaled for SEVERE hypoglycemia., # 1 each, 1 Refills, Soft Stop, 03/09/23 1:35:00 PM EDT, [facility] # [id number], Partial fill upon patient request if the prescription is for a schedule II opioid drug., 153, cm, 03/09/23 13:19:00 EDT, Height Start Date: 03/09/23 Status: Ordered Quantity: 1.0 Unit: each Repeat number: 2 Indication: Type 2 diabetes mellitus without complications CPAP Machine See Instructions, # 1 each, Maintenance, AutoCPAP 8-20 cm H20, use Daily when sleeping with detachable humidifier, 07/28/21 2:00:00 PM EST, Supply Start Date: 07/28/21 Status: Ordered Quantity: 1.0 Unit: each Repeat number: 1 cyclobenzaprine 10 mg oral tablet 1, tablet, By Mouth, 3 times a day, PRN, # 90 tablet, Refills 0, Tot. Refills 0, Acute, NEEDED FOR SPASM, 11/21/20 12:10:00 PM EDT, Route to Pharmacy Electronically, [facility] #[id number], 153, cm, 09/30/20 15:25:00 EDT, Height, 110.4, kg, 08/20/20 6:50:00 EST, Dry Weight Start Date: 11/21/20 Status: Ordered Quantity: 90.0 Unit: tablet Repeat number: 1 Cymbalta 20 mg oral enteric coated capsule 2 capsule = 40 mg, By Mouth, Daily, # 60 capsule, 0 Refills, Maintenance, 02/21/19 6:29:28 AM EDT, EC Capsule Start Date: 02/21/19 Status: Ordered Quantity: 60.0 Unit: capsule Repeat number: 1 Indication: Fibromyalgia dulaglutide 3 mg/0.5 mL subcutaneous solution 0.5 mL = 3 mg, Subcutaneous Injection, Every week, rotate injection sites weekly. Monitor blood sugars more closly when starting higher dose, # 2 mL, 4 Refills, Maintenance, 04/17/24 1:07:00 PM EDT, Solution, [facility] # 302, Partial fill upon patient request if the prescription is for a schedule II opioid drug., 153, cm, 01/23/24 15:38:00 EDT, Height Start Date: 04/17/24 Status: Ordered Quantity: 2.0 Unit: mL Repeat number: 5 folic acid 1 mg oral tablet 1 mg, 1, tablet, By Mouth, Daily, # 90 tablet, Refills 0, Maintenance, 08/24/23 10:50:00 AM EST, Partial fill upon patient request if the prescription is for a schedule II opioid drug. Start Date: 08/24/23 Status: Ordered Quantity: 90.0 Unit: tablet Repeat number: 1 Freestyle Lite Lancets See Instructions, # 90 each, Refills 6, Tot. Refills 6, Maintenance, Use lancets to test blood glucose 3x a day, E11.9, 02/19/20 3:48:00 PM EDT, Supply, 152, cm, 01/29/20 13:54:00 EDT, Height, 106.6, kg, 04/16/19 15:29:00 EDT, Dry Weight Start Date: 02/19/20 Status: Ordered Quantity: 90.0 Unit: each Repeat number: 7 Freestyle Lite Monitor See Instructions, # 1 each, Maintenance, Use glucose meter to monitor blood glucose 3x a day. E11.9, 02/19/20 3:47:00 PM EDT, Supply, 152, cm, 01/29/20 13:54:00 EDT, Height, 106.6, kg, 04/16/19 15:29:00 EDT, Dry Weight Start Date: 02/19/20 Status: Ordered Quantity: 1.0 Unit: each Repeat number: 1 Freestyle Lite Test Strips See Instructions, # 90 each, Refills 9, Tot. Refills 9, Maintenance, Use test strips to monitor blood glucose 3x a day, E11.9, 01/04/24 11:31:00 AM EDT, Supply, 153, cm, 01/04/24 11:12:00 EDT, Height Start Date: 01/04/24 Status: Ordered Quantity: 90.0 Unit: each Repeat number: 10 gabapentin 100 mg oral capsule 100 mg, 1, capsule, By Mouth, 2 times a day, # 60 capsule, Refills 0, Tot. Refills 0, Maintenance, 02/03/23 2:30:00 PM EDT, Route to Pharmacy Electronically, [facility] # 302, Partial fill upon patient request if the prescription is for a schedule II opioid drug., 153, cm, 06/15/22 9:13:00 EST, Height Start Date: 02/03/23 Status: Ordered Quantity: 60.0 Unit: capsule Repeat number: 1 glimepiride 2 mg oral tablet 4 tablet, By Mouth, Daily, # 120 tablet, 0 Refills, Maintenance, 05/23/24 3:18:00 PM EST, [facility] #[id number], 153, cm, 05/03/24 12:59:00 EST, Height Start Date: 05/23/24 Status: Ordered Quantity: 120.0 Unit: tablet Repeat number: 1 Jardiance 25 mg oral tablet 1 tablet, By Mouth, Daily in AM, # 30 tablet, 11 Refills, Maintenance, 04/09/24 1:00:00 PM EDT, [facility] #[id number], 153, cm, 01/23/24 15:38:00 EDT, Height Start Date: 04/09/24 Status: Ordered Quantity: 30.0 Unit: tablet Repeat number: 1 levothyroxine 150 mcg (0.15 mg) oral tablet 1 tablet, By Mouth, Daily, # 90 tablet, 1 Refills, Maintenance, 02/10/24 1:40:00 PM EDT, [facility] # 302, 153, cm, 01/23/24 15:38:00 EDT, Height Start Date: 02/10/24 Status: Ordered Quantity: 90.0 Unit: tablet Repeat number: 2 Levoxyl 0.1 mg oral tablet See Instructions, 100mcg po every Tuesday, # 30 tablet, 0 Refills, Maintenance, 01/26/24 5:52:00 PM EDT, Tablet, [facility] # 302, Partial fill upon patient request if the prescription is for a schedule II opioid drug., 153, cm, 01/23/24 15:38:00 EDT, Height Start Date: 01/26/24 Status: Ordered Quantity: 30.0 Unit: tablet Repeat number: 1 metFORMIN 500 mg oral tablet 1 tablet = 500 mg, By Mouth, 2 times a day, type 2 DM 30 day supply., # 60 tablet, 6 Refills, Maintenance, 03/30/24 3:38:00 PM EDT, [facility] # 302, 153, cm, 01/23/24 15:38:00 EDT, Height Start Date: 03/30/24 Status: Ordered Quantity: 60.0 Unit: tablet Repeat number: 7 methotrexate 2.5 mg oral tablet 3 tablet = 7.5 mg, By Mouth, Every week, # 4 tablet, 0 Refills, Maintenance, 08/24/23 10:50:00 AM EST, Tablet, Partial fill upon patient request if the prescription is for a schedule II opioid drug. Start Date: 08/24/23 Status: Ordered Quantity: 4.0 Unit: tablet Repeat number: 1 omeprazole 20 mg oral enteric coated capsule 1 capsule, By Mouth, Daily, # 90 capsule, 1 Refills, Maintenance, 05/17/24 8:54:00 AM EST, [facility] # [facility], 153, cm, 05/03/24 12:59:00 EST, Height Start Date: 05/17/24 Status: Ordered Quantity: 90.0 Unit: capsule Repeat number: 2 Pen [place], 31 G x 5 mm BD Ultra Fine III See Instructions, # 100 each, Refills 3, Tot. Refills 3, Maintenance, Use to inject insulin once daily. E11.65, 06/07/24 1:43:00 PM EST, Compound, 153, cm, 05/03/24 12:59:00 EST, Height Start Date: 06/07/24 Stop Date: 10/05/24 Status: Ordered Quantity: 100.0 Unit: each Repeat number: 4 pravastatin 40 mg oral tablet 1 tablet, By Mouth, Daily, # 90 tablet, 1 Refills, Maintenance, 01/15/24 1:24:00 PM EDT, [facility], 153, cm, 01/04/24 11:12:00 EDT, Height Start Date: 01/15/24 Status: Ordered Quantity: 90.0 Unit: tablet Repeat number: 2 Tresiba FlexTouch 100 units/mL subcutaneous solution See Instructions, Inject 40 units subcutaneous daily E11.9, # 15 mL, 11 Refills, Maintenance, 05/09/24 11:15:00 AM EST, Solution, [facility] # 302, Partial fill upon patient request if the prescription is for a schedule II opioid drug., 153, cm, 05/03/24 12:59:00 EST, Height Start Date: 05/09/24 Status: Ordered Quantity: 15.0 Unit: mL Repeat number: 12 Problem List Condition Confirmation Course Effective Dates Status H ealth Status Informant Elevated alkaline phosphatase level Confirmed Active Severe obesity (BMI >= 40) Confirmed Active Fibromyalgia Confirmed Active Matteo's thyroiditis Confirmed Active Hyperlipidemia Confirmed Active Hypertension Confirmed Active Acid indigestion Confirmed Active Microalbuminuria Confirmed Active Morbid obesity Confirmed Active NAFLD (nonalcoholic fatty liver disease) Confirmed Active Obstructive sleep apnea Confirmed Active Osteoarthritis of knee Confirmed Active Screening mammogram, encounter for Confirmed Active Renal insufficiency Confirmed Active Rheumatoid arthritis Confirmed Active Seronegative rheumatoid arthritis of hand Confirmed Active Severe obesity Confirmed Active DM type 2 causing renal disease Confirmed Active Type 2 diabetes with stage 2 chronic kidney disease GFR 60-89 Confirmed Active Type II diabetes mellitus uncontrolled Confirmed Active Social History Social History Type Response Smoking Status Never (less than 100 in lifetime) entered on: 01/22/19 Sex Sex Representation Female (finding) Patient Care team information Care Team Personnel Name: Salo Landeros DO Position: [facility] Physician - Primary Care Member Role: PCP Address: [address] [place], [place] [id number] Telecom: Care Team Related Persons Name: CONNOR FITCH Insurance Providers Guarantor name: MALDONADO FITCH Health Plan Information #: 1 Payer: [employer] [place] Member Number: NA Policy Number: NA Group Number: NA
--- OUTSIDE RECORDS SUMMARY | 2024-06-11 14:14 | XMS_ITS | Continuity of Care Document ---
Author Organization [facility] Address [address] [place] [id number]- Care Team Providers Care Socially Responsible Investment Adviser Name Role Phone Salo Landeros DO Primary Care Physician Encounter [facility] [place] [place] Date(s): 04/17/24 - 05/17/24 [facility] [address] [place] [id number] Encounter Type: Triage Allergies, Adverse Reactions, Alerts Substance Criticality Severity Reaction Reaction Severity Status sulfa drugs Active iodine Active Victoza Active Ozempic (0.25 mg or 0.5 mg dose) Active Immunizations Given and Recorded Vaccine Date [...] Refills, Soft Stop, 03/09/23 1:35:00 PM EDT, [facility] # [facility], Partial fill upon patient [...] 12:10:00 PM EDT, Route to Pharmacy Electronically, [facility] #[id number], 153, cm, 09/30/20 15:25:00 EDT, Height, 110.4, [...] Refills, Maintenance, 04/17/24 1:07:00 PM EDT, Solution, [facility] # 302, Partial fill upon patient [...] 2:30:00 PM EDT, Route to Pharmacy Electronically, [facility] # 302, Partial fill upon patient request if the prescription is for a schedule II opioid drug., 153, cm, 06/15/22 9:13:00 EST, Height Start Date: 02/03/23 Status: Ordered Quantity: 60.0 Unit: capsule Repeat number: 1 glimepiride 2 mg oral tablet 4 tablet, By Mouth, Daily, # 120 tablet, 0 Refills, Maintenance, 04/23/24 4:00:00 PM EDT, [facility] #[id number], 153, cm, 01/23/24 15:38:00 EDT, Height Start Date: 04/23/24 Status: Ordered Quantity: 120.0 Unit: tablet Repeat number: 1 Jardiance 25 mg oral tablet 1 tablet, By Mouth, Daily in AM, # 30 tablet, 11 Refills, Maintenance, 04/09/24 1:00:00 PM EDT, [facility] #[id number], 153, cm, 01/23/24 15:38:00 EDT, Height Start Date: 04/09/24 Status: Ordered Quantity: 30.0 Unit: tablet Repeat number: 1 levothyroxine 150 mcg (0.15 mg) oral tablet 1 tablet, By Mouth, Daily, # 90 tablet, 1 Refills, Maintenance, 02/10/24 1:40:00 PM EDT, [facility] # 302, 153, cm, 01/23/24 15:38:00 EDT, Height Start Date: 02/10/24 Status: Ordered Quantity: 90.0 Unit: tablet Repeat number: 2 Levoxyl 0.1 mg oral tablet See Instructions, 100mcg po every Tuesday, # 30 tablet, 0 Refills, Maintenance, 01/26/24 5:52:00 PM EDT, Tablet, [facility] # 302, Partial fill upon patient [...] 6 Refills, Maintenance, 03/30/24 3:38:00 PM EDT, [facility] # 302, 153, cm, 01/23/24 15:38:00 [...] 1 Refills, Maintenance, 05/17/24 8:54:00 AM EST, [facility] # 302, 153, cm, 05/03/24 12:59:00 EST, Height Start Date: 05/17/24 Status: Ordered Quantity: 90.0 Unit: capsule Repeat number: 2 Pen [place], 31 G x 5 mm BD Ultra Fine III See Instructions, # 100 each, Refills 3, Tot. Refills 3, Maintenance, Use to inject insulin once daily. E11.65, 03/28/23 9:15:00 AM EDT, Compound, 153, cm, 03/09/23 13:19:00 EDT, Height Start Date: 03/28/23 Stop Date: 07/26/23 Status: Ordered Quantity: 100.0 Unit: each Repeat number: 4 pravastatin 40 mg oral tablet 1 tablet, By Mouth, Daily, # 90 tablet, 1 Refills, Maintenance, 01/15/24 1:24:00 PM EDT, [facility] # 302, 153, cm, 01/04/24 11:12:00 EDT, Height Start Date: 01/15/24 Status: Ordered Quantity: 90.0 Unit: tablet Repeat number: 2 Tresiba FlexTouch 100 units/mL subcutaneous solution See Instructions, Inject 40 units subcutaneous daily E11.9, # 15 mL, 11 Refills, Maintenance, 05/09/24 11:15:00 AM EST, Solution, [facility] # 302, Partial fill upon patient [...] Team Personnel Name: Salo Landeros DO Position: [facility] Physician - Primary Care Member Role: PCP Address: [address] [place] [address] Telecom: Care Team Related Persons Name: CONNOR FITCH Insurance Providers Guarantor name: MALDONADO FITCH Health Plan Information #: 1 Payer: [employer] [place] Member Number: NA Policy Number: NA Group Number: NA
[2024-06-11 15:13] LABS: Anion Gap 13 (12-20); Blood Urea Nitrogen 12 mg/dL (9-16); Carbon Dioxide 25 mmol/L (22-29); Chloride 104 mmol/L (96-108); Estimated Glomerular Filt Rate 52; Glucose Random 187 mg/dL (60-115); Potassium 4.1 mmol/L (3.3-5.1); Sodium 138 mmol/L (135-145)
== END 2024-06-11 14:12 | disposition home or self-care (01) ==
LOC: HO.LAB 14:11
PROVIDERS: PCP Family Medicine; Visit Provider Internal Medicine Hypertension Specialist
DX: N28.9 Disorder of kidney and ureter, unspecified (principal); I10 Essential (primary) hypertension
CPT/HCPCS: 36415; 80048

== ENCOUNTER 2024-07-26 14:52 | Outpatient (AMB) | payer OTHER, SELFPAY ==
[2024-07-26 14:54] VITALS: BP 110/70; PULSE 109; O2SAT 96; BMI 54.1
--- NOTE | 2024-07-26 14:54 | HO.NEPHOV ---
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 Telehealth Required: No Accompanied by: Self / Same As Patient Allergies iodine Allergy (Unknown, Verified 07/26/24 14:56) Unknown liraglutide [From Victoza] Allergy (Unknown, Verified 07/26/24 14:56) Unknown semaglutide [From Ozempic] Allergy (Unknown, Verified 07/26/24 14:56) Unknown sulfa drugs Allergy (Unknown, Uncoded 03/05/24 15:57) Unknown Medication List - Last Reconciled 07/26/24 by Tulio Jacobs MD dulaglutide (Trulicity) mg subcut duloxetine 60 mg PO DAILY duloxetine (Cymbalta) 40 mg PO BID empagliflozin (Jardiance) 25 mg PO DAILY folic acid 1 mg PO DAILY gabapentin 200 mg PO BID glimepiride 8 mg PO DAILY hydroxychloroquine 300 mg PO QWEEK insulin degludec (Tresiba FlexTouch U-100 insulin) units subcut levothyroxine 100 mcg PO .weekly levothyroxine 150 mcg PO DAILY metformin 1,000 mg PO BID methotrexate sodium 7.5 mg PO QWEEK omeprazole 20 mg PO DAILY pravastatin 40 mg PO DAILY HPI Comments Details: Daphney is a pleasant middle-aged woman with a history of longstanding hypertension diabetes mellitus and obesity who was found to have elevated serum creatinine of 1.13 with EGFR of 54 mL/minute and hence this referral. She has been on lisinopril 20 mg and hydrochlorothiazide 25 mg a day for last 5 years. There has been no recent change in her medications. Ongoing medical problems include as above and in addition to that she has obstructive sleep apnea, rheumatoid arthritis. She does not take any NSAIDs. 03/27/2024. Overall she is feeling well. After lowering hydrochlorothiazide to 12.5 mg blood pressure is better. No new complaints. 05/20/2024. No specific complaints today. 07/26/2024. Overall doing well after stopping antihypertensives blood pressure is in the normal range. She has no issues. [facility] Medical History (Updated 03/08/24 @ 15:49 by Tulio Jacobs MD) Type 2 diabetes mellitus Kidney disease Diabetes Severe obesity H/O screening mammography Rheumatoid arthritis Osteoarthritis of knee Obstructive sleep apnea NAFLD (nonalcoholic fatty liver disease) Morbid obesity Microalbuminuria Hypertension Hyperlipemia Matteo thyroiditis Fibromyalgia Elevated alkaline phosphatase level CKD (chronic kidney disease), stage I Acid indigestion Surgical History History of carpal tunnel release H/O arthroscopy of knee History of cholecystectomy History of appendectomy H/O endoscopy (~01/2011) H/O colonoscopy (~12/2021) Family History Mother Atrial fibrillation Diabetes mellitus Father Diabetes mellitus Physical Exam Vital Signs: Last Vital Signs Pulse 109 H 07/26/24 14:54 BP 110/70 07/26/24 14:54 Pulse Ox 96 07/26/24 14:54 Oxygen Delivery Method Room Air 07/26/24 14:54 BMI result Body Mass Index 54.1 Comfortable Neck supple no JVD. Lungs entry equal no rales. Heart S1-S2 heard no gallop or rub. Abdomen soft nontender. Neuro alert awake oriented. No asterixis. Extremities no edema. Results Reviewed Nephrology Results: Sodium 138 mmol/L (135-145) 06/11/24 Potassium 4.1 mmol/L (3.3-5.1) 06/11/24 Chloride 104 mmol/L (96-108) 06/11/24 Carbon Dioxide 25 mmol/L (22-29) 06/11/24 BUN 12 mg/dL (9-16) 06/11/24 Creatinine 1.07 mg/dL (0.5-1.4) 06/11/24 Calcium 9.0 mg/dL (8.4-10.2) 06/11/24 Urine Protein Negative mg/dL (Neg-Trace) 04/25/24 Urine Creatinine 47.44 mg/dL 03/22/24 Assessment & Plan Assessment & Plan (1) Kidney disease: Code(s): N28.9 - Disorder of kidney and ureter, unspecified Category: Medical (2) Hypertension: Code(s): I10 - Essential (primary) hypertension Category: Medical Plan 61-year-old woman with a history of hypertension no diabetes medicine, obesity with mild CKD. She had relatively low blood pressure. Creatinine is bumped up to 1.5 I suspect she has hypoperfusion contributing to decline in renal function. Recently had a renal ultrasonogram which did not reveal any obstruction. Underlying glomerulo nephritis and interstitial disease seem unlikely, based on the bland urine sediments Since the blood pressure is relatively low, lisinopril 10 mg daily was discussed, especially since she has no significant proteinuria. Subsequently serum creatinine is decreased to 1.07. encouraged her to stay on low-sodium diet Encouraged weight loss. Coding Level of Care Code Est Pt Level 4 (90465) Diagnoses Kidney disease N28.9 Hypertension I10
--- OUTSIDE RECORDS SUMMARY | 2024-07-26 18:47 | XMS_ITS | Data Portability ---
Author Organization [place] [facility],, SHIKHA GARCIA MD Address [address] [facility] [address] [place] [address] Care Team Providers Care Flower Shop Manager Name Role Phone MARTINA UREÑA OTHER Assessment [...] DO Not Attach Compendium, Do Not Delete/merge, [id number] 3 10:25:05 cytology, Pap smear 2012 013 [email or web address] [facility], Cytopathology Service, [address] [place], [address], 3 09:03:47 pap test, thinprep, cervical 2014 015 BRITTANIE [facility], Cytopathology Service, [address] [place], [address], 5 11:16:19 fecal occult blood, stool 2014 015 [email or web address] 1 In-Office Order, Internal Use Only DO Not Attach Compendium DO Not Attach Compendium, Do Not Delete/merge, [id number] 5 08:34:35 pap test, thinprep, cervical 2016 017 [facility], Cytopathology Service, [address] [place], [address], 7 08:58:04 fecal occult blood, stool 2016 017 [email or web address] 1 In-Office Order, Internal Use Only DO Not Attach Compendium DO Not Attach Compendium, Do Not Delete/merge, [id number] 7 08:25:08 Referral None recorded. Procedures None recorded. Surgeries None recorded. Imaging MAMMO, screening , digital, bilateral 2012 013 [facility] (Radiology), [facility] [place], [address], 3 09:04:42 bone density study 2014 015 [facility] (Radiology), [facility] [place], [address], 6 07:50:51 MAMMO, screening , digital, bilateral 2014 015 [facility] ([facility]), [address] [place], [address], 6 07:50:50 MAMMO, screening , digital, bilateral 2016 017 [facility] ([facility]), [address] [place], [address], 8 13:18:34 US, pelvis, transabdo elva + transvagi nal - right sided pelvic disomfort for a few weeks 2016 017 BRITTANIE [facility] ([facility]), [address] [place], [address], 7 13:03:41 Medication Orders nystatin 100,000 unit/gram topical powder 2014 015 [email or web address] [facility], [address], [place], [address], 7 08:06:40 clotrimaz ole-betam ethasone 1 %-0.05 % topical cream 2016 017 INTERFACE [facility], [address], [place], [address], 08:31:31 Patient TargetsNo targets recorded. Patient Instructions Encounter Date Encounter Id Patient Instructions Last Modified By Organization Details Last Modified Time 02/01/2013 [id number] She has what is possibly postmenopausal bleeding, [...] in detail. Not available 02/01/2013 10:25:05 02/12/2013 [id number] anemia: care instructions [email or web address] Not available 02/13/2013 [...] 25 minutes Not available 02/12/2013 16:39:52 12/13/2014 [id number] She is here for annual exam, is [...] in detail. Not available 12/13/2014 08:34:36 10/22/2016 [id number] self breast exam education zora Not available 10/22/2016 08:56:00 She is here for annual exam. Her fibromyalgia is stable, her diabetes improved with Trulicity. Her was just disabled from [facility] due to his back injury at [...] Abnormal Flag Note LastModifiedBy Organization Detail LastModifiedTime 10/23/19 17 10/22/2016 fecal occul t blood , stool Occult Blood negati ve Not Available In-Office Order Internal Use Only DO Not Attach Compendium DO Not Attach Compendium, Do Not Delete/merge, [id number] 10/22/2016 08:17:03 12/14/19 15 12/13/2014 fecal occul t blood , stool Occult Blood negati ve Not Available In-Office Order Internal Use Only DO Not Attach Compendium DO Not Attach Compendium, Do Not Delete/merge, [id number] 12/13/2014 08:04:22 02/02/20 13 02/01/2013 occul t blood , scree n Occult Blood negati ve Not Available In-Office Order Internal Use Only DO Not Attach Compendium DO Not Attach Compendium, Do Not Delete/merge, [id number] 02/01/2013 08:29:40 02/02/20 13 02/01/2013 pap1c ase [id number] thinp rep Pap, image d: negat khai [...] at the above addre ss. Not Available [facility], Cytopathology Service [address] [place], [address], 02/06/2013 09:36:28 12/14/19 15 12/13/2014 pap, LB [id number] ThinP rep Pap, Image d: NEGAT KHAI [...] provi ded by [facility] at the above addre ss. Not Available [facility], Cytopathology Service [address] [place], [address], 12/17/2014 11:16:19 10/23/19 17 10/22/2016 pap, LB [id number] ThinP rep Pap, Image d: NEGAT KHAI FOR SQUAM OUS INTRA EPITH ELIAL LESIO N AND MALIG AVERY . Mikhail jones Dziur a, CT( CP) (Case elect nilay rendon martinez d 10 25 2016) ADEQU ACY: Satis facto ry. Endoc ervic al/tr ansfo rmati on zone compo nent prese nt. SOURC E: ThinP rep Pap HPV IF ASCUS , Cervi berenice, Image d: CLINI BERENICE INFOR MATIO N: HPV If Diagn osis of ASCUS . LMP NEG, MENOP AUSE Not Available [facility], Cytopathology Service [address] [place], [address], 10/25/2016 13:41:05 05/02/20 13 04/24/2013 imagi ng/di agnos tic resul t No observ ation record ed. BRITTANIE Not Available 2012 11:35:39 12/21/19 15 12/11/2014 imagi ng/di agnos tic resul t No observ ation record ed. [facility] Not Available 2015 07:31:14 01/01/20 15 12/18/2014 imagi ng/di agnos tic resul t No observ ation record ed. [facility] Not Available 2014 08:22:42 02/16/20 16 02/06/2016 MAMMO , scree harleen, digit al, bilat eral No observ ation record ed. [facility] Not Available 2015 15:12:30 10/31/19 17 10/29/2016 US, pelvi s, trans abdom inal + trans vagin al No observ ation record ed. [facility], [place], [address], 11/02/2016 10:02:22 10/19/19 18 MAMMO , scree harleen, digit al, bilat eral No observ ation record ed. Not Available 09/26 13:45:36 Result Notes None recorded. Problems Name Problem SNOMED Code Status Onset Date Resolution Date Notes Provider Name and Address Organization Details Recorded Time Candidiasis of skin 06768889 Active Shikha Garcia MD [address], [place], [address] , DENYS Piña in [facility], 5 08:34:35 Fibromyalgia 367499084 Active 2016 [place] in [facility], 7 08:16:42 Anemia 197265676 Active Not Available [facility] 3 03:01:07 Postmenopausa l bleeding 06017665 Active Not Available [facility] 3 03:01:07 Menopausal syndrome 132264726 Active Shikha Garcia MD [address], [place], [address] , [place] - [facility], 5 08:34:35 Malaise and fatigue 598414066 Active Not Available [facility] 3 03:01:07 Vitamin D deficiency 75420960 Active Not Available [facility] 3 03:01:07 Problem Notes None recorded. Procedures Surgical History Date Name Laterality Status Provider Name and Address Organization Details Recorded Time 12/19/19 15 Most Recent Bone Density completed Luh Piña in [facility], 10/22/2016 08:15:48 06/27/19 04 Other completed Jeanine Piña in [facility], 02/01/2013 08:43:21 06/27/19 00 Appendectomy completed Jeanine Piña in [facility], 02/01/2013 08:43:21 06/27/18 98 Other completed Jeanine Piña in [facility], 02/01/2013 08:43:21 06/27/18 92 Tubal Ligation completed Jeanine Piña in [facility], 02/01/2013 08:43:21 06/27/18 92 Cholecystectomy completed Jeanine Piña in [facility], 02/01/2013 08:43:21 06/27/18 90 Caesarean Section completed Jeanine Piña in [facility], 02/01/2013 08:43:21 Imaging Results Imaging Date Name Status LastModified by Organization Details LastModified Time 04/24/2013 imaging/diagnostic result completed BRITTANEI Information not available 05/02/2013 11:35:39 12/11/2014 imaging/diagnostic result completed [facility] Information not available 12/01/2015 07:31:14 12/18/2014 imaging/diagnostic result completed [facility] Information not available 12/31/2014 08:22:42 02/06/2016 MAMMO, screening, digital, bilateral completed [facility] Information not available 02/16/2016 15:12:30 10/29/2016 US, pelvis, transabdominal + transvaginal completed [facility], [place], [address], 11/02/2016 10:02:22 10/18/2017 MAMMO, screening, digital, bilateral [...] Jeanine higginbotham [place] - [facility], 3 08:43:21 Medications Name Sig Start Date Stop Date Status Note LastModified by Organization Details LastModified Time freestyle mis lite active Not Available Not Available Not Available freestyle mis lancets active Not Available Not [...] Details Last Updated DateTime 3 152.4 cm 169384. 12736 g 51.9 kg/m2 62 /min 144 mm[Hg] 61 mm[Hg] Jeanine Piña in [facility], 3 08:29:40 Date Recorded Body height Body weight Body mass index (BMI) Heart rate Systolic blood pressure Diastolic blood pressure Provider Name and Address Organization Details Last Updated DateTime 3 152.4 cm 730233. 095097 g 51.5 kg/m2 81 /min 139 mm[Hg] 64 mm[Hg] Jeanine Piña in [facility], 3 10:33:54 Date Recorded Body weight Heart rate Body mass index (BMI) Body height Systolic blood pressure Diastolic blood pressure Provider Name and Address Organization Details Last Updated DateTime 5 865579. 55723 g 88 /min 47.7 kg/m2 152.4 cm 135 mm[Hg] 78 mm[Hg] Jeanine Piña in [facility], 5 08:03:44 Date Recorded Body weight Heart rate Body height Body mass index (BMI) Systolic blood pressure Diastolic blood pressure Provider Name and Address Organization Details Last Updated DateTime 7 104602. 89 g 72 /min 152.4 cm 48.9 kg/m2 145 mm[Hg] 66 mm[Hg] Luh Burton [place] Piña in [facility], 7 08:14:04 Social History Question Answer Notes LastModified by Organizat ion Details LastModified Time Tobacco Smoking Status Never Smoker Not Available [facility] 04/29/2020 03:19:37 What Is Your Level Of Alcohol Consumption? None [id number] Information not available 04/29/2020 What Is Your Level Of Caffeine Consumption? Occasional [id number] Information not available 04/29/2020 What Type Of Diet Are You Following? REGULAR [id number] Information not available 04/29/2020 Which Illicit Or Recreational Drugs Have You Used? No [id number] Information not available 04/29/2020 Do You Reside In Or Have You Traveled To An Area Where Ebola Virus Transmission Is Active? 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 [id number] Information not available 04/29/2020 How Many Days In The Past Year Have You Had A Heavy Drinking Consumption (4+ Female, 5+ Male)? 0 Information not available 10/22/2016 High Number Of Sexual Partners No Information not available 10/22/2016 To Which Gender Do You Self-identify? Female Information not available 10/22/2016 Marital Status freya Love n not available 02/01/2013 Are You Sexually Active? No [id number] Information not available 04/29/2020 How Much Tobacco Do You Smoke? No [id number] Information not available 04/29/2020 General Stress Level High Disabled Information not available 10/22/2016 Have You Recently (within The Last 12 Weeks, Or During A Current ) Traveled To Or Lived In A Zika-affected Area? No Information not available 10/22/2016 Sex: Unknown Functional Status Question Answer Note LastModified by Organization D etails LastModified Time What is your exercise level? Moderate [id number] Information not available 04/29/2020 Mental Status None [...] available 12/13/2014 08:09:35 Medical History Condition Response High Blood Pressure Y Depression N History of Ovarian Cancer N Anxiety Disorder N Arthritis Y Infertility N Kidney or Bladder Problems N Osteopenia N Asthma N Hepatitis N Anesthesia complications Y Lung Disease N Defects or Inherited Disease N BRCA testing in past N History of Cancer N Endometriosis N Thyroid Problems Y GI Problems N Anemia Y History of Breast Cancer N Psychiatric Illness N Diabetes Y Headaches or Migraines N Heart Disease N Hypertension Y Osteoporosis [...] Diagnosis/Indication Diagnosis SNOMED-CT Code Diagnosis ICD10 Code Diagnosis Note [id number] SHIKHA GARCIA MD [address] [place] [address] 02/01/2013 08:17:14 02/01/2013 12:52:13 [id number] Jeanine GARCIA MD [address] [place] [address] 02/12/2013 10:23:40 02/13/2013 09:23:55 [id number] SHIKHA GARCIA MD [address] [facility],[place] [address] 12/13/2014 07:51:55 12/13/2014 09:39:09 Specialized medical examination 86045266 Screening for malignant neoplasm of rectum 938134155 Screening mammography 35657854 Candidiasis of skin 73747569 Menopausal syndrome 301480428 [id number] MD SHIKHA Freitas MD [address] [address] 10/22/2016 08:00:50 10/22/2016 11:21:42 Specialized medical examination 07548022 Z01.419 Screening for malignant neoplasm of rectum 149194996 Z12.12 Screening mammography 24 624475 Z12.31 Candidiasis of skin 4988 3006 B37.2 Pain in pelvis 09931876 R10.2 Health Concerns Section Related Observation LastModified by Organization Detai ls LastModified Time None Recorded Concern Status LastModified by Organization Details LastModified Time None Recorded Advance Directives Directive None Recorded Payers Encounter Date Sequence Insurance Name Policy Number Policy Yan Covered Member ID Yan Member ID Guarantor Name 02/01/2013 1 [facility] [id number] Daphney Meek [id number] Daphney Meek 02/12/2013 1 [facility] (O) [id number] Daphney Meek [id number] Daphney Meek 12/13/2014 1 [facility] (HMO) [id number] Daphney Gaviota [id number] Daphney Meek 10/22/[address] ([facility] [id number] Tony Meek [id number] Daphney Meek Notes Date Note Type Note Provider Name and Address Organization Details Recorded Time 10/22/2016 text/html She is here for annual exam. Her fibromyalgia is stable, her diabetes improved with Trulicity. Her was just disabled from [facility] due to his back injury at work. Shikha Garcia MD [address] [facility],[address], [place], [address], [place] - [facility], 10/22/2016 09:32:33 OBGyn Episode No OBEpisode recorded.
--- OUTSIDE RECORDS SUMMARY | 2024-07-26 18:47 | XMS_ITS | Continuity of Care Document ---
Author Organization [facility] Address [address] [place] [address]- Care Team Providers Care Cad Designer Drafter Name Role Phone Salo Landeros DO Primary Care Physician Encounter [facility] Date(s): 06/07/24 - 07/07/24 [facility] [address] [place] [address] Encounter Type: Triage Allergies, Adverse Reactions, Alerts Substance Criticality Severity Reaction Reaction Severity Status sulfa drugs Active Ozempic (0.25 mg or 0.5 mg dose) Active Victoza Active iodine Active Immunizations Given and Recorded Vaccine Date Status Refusal Reason zoster vaccine, inactivated 10/08/21 Recorded zoster vaccine, inactivated 02/06/21 Recorded SARS-CoV-2 (COVID-19) mRNA BNT-162b2 vac 11/02/20 Recorded SARS-CoV-2 (COVID-19) mRNA BNT-162b2 vac 10/12/20 Recorded Medications amLODIPine 2.5 mg oral tablet 1 tablet, By Mouth, Daily, # 90 tablet, 0 Refills, Maintenance, 06/23/24 5:54:00 AM EST, [facility] #[id number], 153, cm, 05/03/24 12:59:00 EST, Height Start Date: 06/23/24 Status: Ordered Quantity: 90.0 Unit: tablet Repeat number: 1 Baqsimi One Pack 3 mg nasal powder = 3 mg, Naris, Left, Once, In one nostril; dose does not need to be inhaled for SEVERE hypoglycemia., # 1 each, 1 Refills, Soft Stop, 03/09/23 1:35:00 PM EDT, [facility], Partial fill upon [...] 12:10:00 PM EDT, Route to Pharmacy Electronically, [facility] #[id number], 153, cm, 09/30/20 15:25:00 EDT, Height, 110.4, [...] Refills, Maintenance, 04/17/24 1:07:00 PM EDT, Solution, [facility], Partial fill upon [...] 2:30:00 PM EDT, Route to Pharmacy Electronically, [facility] # 302, Partial fill upon patient request if the prescription is for a schedule II opioid drug., 153, cm, 06/15/22 9:13:00 EST, Height Start Date: 02/03/23 Status: Ordered Quantity: 60.0 Unit: capsule Repeat number: 1 glimepiride 2 mg oral tablet 4 tablet, By Mouth, Daily, # 120 tablet, 5 Refills, Maintenance, 06/25/24 1:18:00 PM EST, [facility] #[id number], 153, cm, 05/03/24 12:59:00 EST, Height Start Date: 06/25/24 Status: Ordered Quantity: 120.0 Unit: tablet Repeat number: 1 Jardiance 25 mg oral tablet 1 tablet, By Mouth, Daily in AM, # 30 tablet, 11 Refills, Maintenance, 04/09/24 1:00:00 PM EDT, [facility] #[id number], 153, cm, 01/23/24 15:38:00 EDT, Height Start Date: 04/09/24 Status: Ordered Quantity: 30.0 Unit: tablet Repeat number: 1 levothyroxine 150 mcg (0.15 mg) oral tablet 1 tablet, By Mouth, Daily, # 90 tablet, 1 Refills, Maintenance, 02/10/24 1:40:00 PM EDT, [facility] # 302, 153, cm, 01/23/24 15:38:00 EDT, Height Start Date: 02/10/24 Status: Ordered Quantity: 90.0 Unit: tablet Repeat number: 2 Levoxyl 0.1 mg oral tablet See Instructions, 100mcg po every Tuesday, # 30 tablet, 0 Refills, Maintenance, 01/26/24 5:52:00 PM EDT, Tablet, [facility] # 302, Partial fill upon [...] 6 Refills, Maintenance, 03/30/24 3:38:00 PM EDT, [facility], 153, cm, 01/23/24 [...] 1 Refills, Maintenance, 05/17/24 8:54:00 AM EST, [facility] # 302, 153, cm, 05/03/24 12:59:00 EST, Height Start Date: 05/17/24 Status: Ordered Quantity: 90.0 Unit: capsule Repeat number: 2 Pen [place], 31 G x 5 mm BD Ultra [...] 1 Refills, Maintenance, 01/15/24 1:24:00 PM EDT, [facility] # 302, 153, cm, 01/04/24 11:12:00 EDT, Height Start Date: 01/15/24 Status: Ordered Quantity: 90.0 Unit: tablet Repeat number: 2 Tresiba FlexTouch 100 units/mL subcutaneous solution See Instructions, Inject 40 units subcutaneous daily E11.9, # 15 mL, 11 Refills, Maintenance, 05/09/24 11:15:00 AM EST, Solution, [facility] # 302, Partial fill upon patient [...] Team Personnel Name: Salo Landeros DO Position: [facility] Physician - Primary Care Member Role: PCP Address: [address] [place] [address] Telecom: Care Team Related Persons Name: CONNOR FITCH Insurance Providers Guarantor name: MALDONADO FITCH Health Plan Information #: 1 Payer: [facility] Member Number: NA Policy Number: NA Group Number: NA
== END 2024-07-26 15:06 | disposition home or self-care (01) ==
PROVIDERS: PCP Family Medicine; Visit Provider Internal Medicine Hypertension Specialist
DX: N28.9 Disorder of kidney and ureter, unspecified (principal); I10 Essential (primary) hypertension
CPT/HCPCS: 99214

== ENCOUNTER → 2024-07-26 14:52 | Outpatient (BNVA) | payer OTHER, SELFPAY | PROVIDERS: PCP Family Medicine; Visit Provider Internal Medicine Hypertension Specialist | DX: I10 Essential (primary) hypertension (principal); N28.9 Disorder of kidney and ureter, unspecified; E66.9 Obesity, unspecified; G47.33 Obstructive sleep apnea (adult) (pediatric); M06.9 Rheumatoid arthritis, unspecified; Z79.899 Other long term (current) drug therapy; Z68.43 Body mass index [BMI] 50.0-59.9, adult | CPT/HCPCS: 99212 ==

== ENCOUNTER 2025-01-24 13:16 | Outpatient (AMB) | payer OTHER, SELFPAY ==
--- OUTSIDE RECORDS SUMMARY | 2025-01-18 23:59 | XMS_ITS | Continuity of Care Document ---
Author Organization [facility] Address [address] [place] [address]- Care Team Providers Care Thermal Cutting Machine Operator Name Role Phone Sonny DENNY, Jack Primary Care Physician Encounter [facility] Date(s): 12/19/24 - 01/18/[address] [address] Encounter Type: Triage Allergies, Adverse Reactions, Alerts Substance Criticality Severity Reaction Reaction Severity Status sulfa drugs Active Ozempic (0.25 mg or 0.5 mg dose) Active iodine Active Victoza Active Immunizations Given and Recorded Vaccine Date Status Refusal Reason zoster vaccine, inactivated 10/08/21 Recorded zoster vaccine, inactivated 02/06/21 Recorded SARS-CoV-2 (COVID-19) mRNA BNT-162b2 vac 11/02/20 Recorded SARS-CoV-2 (COVID-19) mRNA BNT-162b2 vac 10/12/20 Recorded Medications folic acid 1 mg oral tablet 1 mg, 1, tablet, By Mouth, Daily, # 90 tablet, Refills 0, Maintenance, 08/24/23 10:50:00 AM EST, Partial fill upon patient request if the prescription is for a schedule II opioid drug. Start Date: 08/24/23 Status: Ordered Quantity: 90.0 Unit: tablet Repeat number: 1 Freestyle Lite Test Strips See Instructions, # 90 each, Refills 9, Tot. Refills 9, Maintenance, Use test strips to monitor blood glucose 3x a day, E11.9, 01/04/24 11:31:00 AM EDT, Supply, 153, cm, 01/04/24 11:12:00 EDT, Height Start Date: 01/04/24 Status: Ordered Quantity: 90.0 Unit: each Repeat number: 10 glimepiride 2 mg oral tablet 4 tablet, By Mouth, Daily, # 120 tablet, 0 Refills, Maintenance, 12/25/24 2:51:00 PM EDT, [facility] #[id number], 153, cm, 12/18/24 13:41:00 EDT, Height Start Date: 12/25/24 Status: Ordered Quantity: 120.0 Unit: tablet Repeat number: 1 Jardiance 25 mg oral tablet 1 tablet, By Mouth, Daily in AM, # 30 tablet, 11 Refills, Maintenance, 04/09/24 1:00:00 PM EDT, [facility] #[id number], 153, cm, 01/23/24 15:38:00 EDT, Height Start Date: 04/09/24 Status: Ordered Quantity: 30.0 Unit: tablet Repeat number: 1 levothyroxine 0.112 mg oral tablet 1 tablet = 112 mcg, By Mouth, Daily, # 90 tablet, 0 Refills, Maintenance, 12/28/24 8:45:00 AM EDT, Tablet, [facility] # [id number], Partial fill upon patient request if the prescription is for a scheduleII opioid drug., 153, cm, 12/18/24 13:41:00 EDT, Height Start Date: 12/28/24 Status: Ordered Quantity: 90.0 Unit: tablet Repeat number: 1 metFORMIN 500 mg oral tablet 1 tablet = 500 mg, By Mouth, 2 times a day, type 2 DM 30 day supply., # 60 tablet, 6 Refills, Maintenance, 03/30/24 3:38:00 PM EDT, [facility] # [id number], 153, cm, 01/23/24 15:38:00 [...] 1 Refills, Maintenance, 05/17/24 8:54:00 AM EST, [facility] # [id number], 153, cm, 05/03/24 12:59:00 EST, Height Start Date: 05/17/24 Status: Ordered Quantity: 90.0 Unit: capsule Repeat number: 2 Pen [place], 31 G x 5 mm BD Ultra [...] Daily, # 90 tablet, 1 Refills, Maintenance, 01/02/25 3:55:00 PM EDT, [facility] # 302, 153, cm, 12/18/24 13:41:00 EDT, Height Start Date: 01/02/25 Stop Date: 07/01/25 Status: Ordered Quantity: 90.0 Unit: tablet Repeat number: 2 Tresiba FlexTouch 100 units/mL subcutaneous solution See Instructions, Inject 40 units subcutaneous daily E11.9, # 15 mL, 11 Refills, Maintenance, 05/09/24 11:15:00 AM EST, Solution, [facility] # [id number], Partial fill upon patient request if the prescription is for a schedule II opioid drug., 153, cm, 05/03/24 12:59:00 EST, Height Start Date: 05/09/24 Status: Ordered Quantity: 15.0 Unit: mL Repeat number: 12 Trulicity Pen 3 mg/0.5 mL subcutaneous solution See Instructions, inject 0.5 mL Subcutaneously Every week. rotate injection sites weekly. Monitor blood sugars more closly when starting higher dose, # 2 mL, 5 Refills, Maintenance, 09/14/24 12:56:00 PM EDT, [facility] #[id number], 153, cm, 05/03/24 12:59:00 EST, Height Start Date: 09/14/24 Status: Ordered Quantity: 2.0 Unit: mL Repeat number: 1 Problem List Condition Confirmation Course Effective Dates Status H ealth Status Informant Hyperlipidemia associated with type 2 diabetes mellitus Confirmed Active Hypertension associated with type 2 diabetes mellitus Confirmed Active Hypothyroidism Confirmed Active Obstructive sleep apnea Confirmed Active Rheumatoid arthritis Confirmed Active Severe obesity Confirmed Active Type 2 diabetes with stage 2 chronic kidney disease GFR 60-89 Confirmed Active Diabetes mellitus, type 2 Confirmed Active Social History Social History Type Response Smoking Status Never (less than 100 in lifetime) entered on: 12/18/24 Sex Sex Representation Female (finding) Patient Care team information Care Team Personnel Name: Jack Dennis MD Position: [facility] Physician - Primary Care Member Role: PCP Address: [address] [place] [address] Telecom: Care Team Related Persons Name: CONNOR FITCH Insurance Providers Guarantor name: MALDONADO FITCH Health Plan Information #: 1 [address]ayer: [facility] Payer Identifier: JOHN Member Number: [id number] Group Number: [id number] Subscriber Identifier: [id number] Relationship to Subscriber: self Coverage Type: Medicaid (Managed Care) Coverage Verification Date: NA Telecom: NA Address:
--- NOTE | 2025-01-24 13:17 | HO.NEPHOV ---
Vital Signs 01/24/25 13:18 Height 5 ft Weight 269 lb BMI 52.5 BP 136/62 Blood Pressure Location Lt radial Pulse 102 H Pulse Source Pulse Oximeter Pulse Oximetry (%) 99 Oxygen Delivery Method Room Air Intake Visit Reasons: 6mon follow-up [facility] Consultant Required: No Accompanied by: Self / Same As Patient Allergies iodine Allergy (Unknown, Verified 01/24/25 13:20) Unknown liraglutide (From Victoza) Allergy (Unknown, Verified 01/24/25 13:20) Unknown semaglutide (From Ozempic) Allergy (Unknown, Verified 01/24/25 13:20) Unknown sulfa drugs Allergy (Unknown, Uncoded 03/05/24 15:57) Unknown Medication List - Last Reconciled 01/24/25 by Tulio Jacobs MD dulaglutide (Trulicity) mg subcut duloxetine 60 mg PO DAILY empagliflozin (Jardiance) 25 mg PO DAILY folic acid 1 mg PO DAILY gabapentin 200 mg PO BID glimepiride 8 mg PO DAILY hydroxychloroquine 300 mg PO QWEEK insulin degludec (Tresiba FlexTouch U-100 insulin) units subcut levothyroxine 150 mcg PO DAILY metformin 1,000 mg PO BID methotrexate sodium 7.5 mg PO QWEEK omeprazole 20 mg PO DAILY pravastatin 40 mg PO DAILY Do you need a note to return to daycare/school/sports/work: No HPI Comments Details: Daphney is a pleasant middle-aged woman with a history of longstanding hypertension diabetes mellitus and obesity who was found to have elevated serum creatinine of 1.13 with EGFR of 54 mL/minute and hence this referral. She has been on lisinopril 20 mg and hydrochlorothiazide 25 mg a day for last 5 years. There has been no recent change in her medications. Ongoing medical problems include as above and in addition to that she has obstructive sleep apnea, rheumatoid arthritis. She does not take any NSAIDs. 03/27/2024. Overall she is feeling well. After lowering hydrochlorothiazide to 12.5 mg blood pressure is better. No new complaints. 05/20/2024. No specific complaints today. 07/26/2024. Overall doing well after stopping antihypertensives blood pressure is in the normal range. She has no issues. 01/24/25: BP excellent without any anti hypertensives Off Metformin [facility] 1928–1983 Medical History Type 2 diabetes mellitus Kidney disease Diabetes Severe obesity H/O screening mammography Rheumatoid arthritis Osteoarthritis of knee Obstructive sleep apnea NAFLD (nonalcoholic fatty liver disease) Morbid obesity Microalbuminuria Hypertension Hyperlipemia Matteo thyroiditis Fibromyalgia Elevated alkaline phosphatase level CKD (chronic kidney disease), stage I Acid indigestion Surgical History History of carpal tunnel release H/O arthroscopy of knee History of cholecystectomy History of appendectomy H/O endoscopy (~01/2011) H/O colonoscopy (~12/2021) Family History Mother Atrial fibrillation Diabetes mellitus Father Diabetes mellitus Physical Exam Vital Signs: Last Vital Signs Pulse 102 H 01/24/25 13:18 BP 136/62 01/24/25 13:18 Pulse Ox 99 01/24/25 13:18 Oxygen Delivery Method Room Air 01/24/25 13:18 BMI result Body Mass Index 52.5 Comfortable Neck supple no JVD. Lungs entry equal no rales. Heart S1-S2 heard no gallop or rub. Abdomen soft nontender. Neuro alert awake oriented. No asterixis. Extremities no edema. Results Reviewed Nephrology Results: Sodium, (135-145) 138 mmol/L 06/11/24 Potassium, (3.3-5.1) 4.1 mmol/L 06/11/24 Chloride, (96-108) 104 mmol/L 06/11/24 Carbon Dioxide, (22-29) 25 mmol/L 06/11/24 BUN, (9-16) 12 mg/dL 06/11/24 Creatinine, (0.5-1.4) 1.07 mg/dL 06/11/24 Calcium, (8.4-10.2) 9.0 mg/dL Δ 06/11/24 Urine Protein, (Neg-Trace) Negative mg/dL 04/25/24 Urine Creatinine 47.44 mg/dL 03/22/24 Assessment & Plan Assessment & Plan (1) Kidney disease: Code(s): N28.9 - Disorder of kidney and ureter, unspecified Category: Medical (2) Hypertension: Code(s): I10 - Essential (primary) hypertension Category: Medical Plan 61-year-old woman with a history of hypertension no diabetes medicine, obesity with mild CKD. She had relatively low blood pressure. Creatinine is bumped up to 1.5 I suspect she has hypoperfusion contributing to decline in renal function. Recently had a renal ultrasonogram which did not reveal any obstruction. Underlying glomerulo nephritis and interstitial disease seem unlikely, based on the bland urine sediments Since the blood pressure is relatively low, lisinopril 10 mg daily was discussed, especially since she has no significant proteinuria. Subsequently serum creatinine is decreased to 1.07. encouraged her to stay on low-sodium diet Encouraged weight loss. Orders: Orders Basic Metabolic Panel 6 Months I10 - Essential (primary) hypertension, N28.9 - Disorder of kidney and ureter, unspecified UA and rflx microscopic 6 Months I10 - Essential (primary) hypertension, N28.9 - Disorder of kidney and ureter, unspecified Total Protein Urine Random 6 Months I10 - Essential (primary) hypertension, N28.9 - Disorder of kidney and ureter, unspecified Creatinine Urine 6 Months I10 - Essential (primary) hypertension, N28.9 - Disorder of kidney and ureter, unspecified Coding Level of Care Code Est Pt Level 4 (18440) Diagnoses Kidney disease N28.9 Hypertension I10
[2025-01-24 13:18] VITALS: BP 136/62; PULSE 102; O2SAT 99; BMI 52.5
--- OUTSIDE RECORDS SUMMARY | 2025-01-24 13:27 | XMS_ITS | Encounter Summary ---
Author Organization [facility] Address [address] [place] [phone] Phone Care Team Providers Care Senior Lead Software Engineer Name Role Phone Salo Landeros DO Primary Care Provider Encounter Details Date Type Department Care Team (Late st Contact Info) Description 06/12/2020 Procedure Pass [facility], [address] [address] Social History Tobacco Use Types Packs/Day Years Used Date Smoking Tobacco: Never Smokeless Tobacco: Never Comments Unknown Sex and Gender Information Value Date Recorded Sex Assigned at Female 03/18/2021 2:33 AM EDT Legal Sex Female 3:28 PM EDT Gender Identity Female 03/18/2021 2:33 AM EDT Sexual Orientation Not on file documented as of this encounter Last Filed Vital Signs Vital Sign Reading Time Taken Comments Blood Pressure - - Pulse - - Temperature - - Respiratory Rate - - Oxygen Saturation - - Inhaled Oxygen Concentration - - Weight 108.4 kg (239 lb) 06/15/2020 1:55 PM EST Height 152.4 cm (5') 06/15/2020 1:55 PM EST Body Mass Index 46.68 06/15/2020 1:55 PM EST documented in this encounter Plan of Treatment Not on file documented as of this encounter Visit Diagnoses Not on filedocumented in this encounter Care Teams Senior Lead Software Engineer Relationship Specialty Start Date End Date Salo Landeros DO [address] [facility] [place] [address] PCP - General Family Medicine 12/27/18 documented as of this encounter Additional Source Comments The information contained in this document represents components of the legal health record. It is not the complete legal health record.[facility]
== END 2025-01-24 13:34 | disposition home or self-care (01) ==
LOC: HO.HKA 13:17
PROVIDERS: PCP Family Medicine; Visit Provider Internal Medicine Hypertension Specialist
DX: N28.9 Disorder of kidney and ureter, unspecified (principal); I10 Essential (primary) hypertension
CPT/HCPCS: 99214

== ENCOUNTER → 2025-01-24 13:16 | Outpatient (BNVA) | payer OTHER, SELFPAY | PROVIDERS: PCP Family Medicine; Visit Provider Internal Medicine Hypertension Specialist | DX: I10 Essential (primary) hypertension (principal); N28.9 Disorder of kidney and ureter, unspecified | CPT/HCPCS: 99212 ==

== ENCOUNTER 2025-05-06 12:23 | Outpatient (REF) | payer OTHER, SELFPAY ==
--- OUTSIDE RECORDS SUMMARY | 2025-05-06 14:38 | XMS_ITS | Encounter Summary ---
Author Organization [facility] Address [address] [place] [phone] Phone Care Team Providers Care Cardiology Specialist Name Role Phone LanderosSalo DO Primary Care Provider Encounter Details Date Type Department Care Team (Late st Contact Info) Description 09/10/2021 Ancillary Orders [facility] Rheumatology [address] [place] [address] Cecilia Mitchell PA [address] [place] [id number] Pain in joints Social History Tobacco Use Types Packs/Day Years Used Date Smoking Tobacco: Never Smokeless Tobacco: Never Comments No Sex and Gender Information Value Date Recorded Sex Assigned at Female 03/18/2021 2:33 AM EDT Legal Sex Female 3:28 PM EDT Gender Identity Female 03/18/2021 2:33 AM EDT Sexual Orientation Not on file documented as of this encounter Plan of Treatment Not on file documented as of this encounter Results * XR FOOT 3 OR MORE VIEWS (LEFT) (09/10/2021 4:15 PM EDT) Anatomical Region Laterality Modality Foot Left Computed Radiogr aphy 09/10/2021 7:01 PM EDT Impressions 09/10/2021 7:05 PM EDT Moderate to severe midfoot degenerative changes of the bilateral feet as described. No acute osseous abnormality. Narrative 09/10/2021 7:05 PM EDT XR FOOT 3 OR MORE VIEWS (LEFT), XR FOOT 3 OR MORE VIEWS (RIGHT) COMPARISON: FINDINGS: Right foot: Partially visualized irregularity of the medial malleolus may reflect prior trauma. Moderate to severe midfoot degenerative changes most prominent at the second and third TMT joints. Additional degenerative changes involving the third and fourth interphalangeal joints. Plantar spur. No acute fracture or dislocation. Left foot: Moderate to severe midfoot degenerative changes most prominent at the second TMT joint. Plantar calcaneal spur. Talonavicular joint degenerative changes. No acute fracture or dislocation. Procedure Note Morris Lovell MD - 09/10/2021 XR FOOT 3 OR MORE VIEWS (LEFT), XR FOOT 3 OR MORE VIEWS (RIGHT) COMPARISON: FINDINGS: Right foot: Partially visualized irregularity of the medial malleolus mayreflect prior trauma. Moderate to severe midfoot degenerative changes mostprominent at the second and third TMT joints. Additional degenerativechanges involving the third and fourth interphalangeal joints. Plantarspur. No acute fracture or dislocation. Left foot: Moderate to severe midfoot degenerative changes most prominentat the second TMT joint. Plantar calcaneal spur. Talonavicular jointdegenerative changes. No acute fracture or dislocation. IMPRESSION: Moderate to severe midfoot degenerative changes of the bilateral feet asdescribed. No acute osseous abnormality. Cecilia SINGLETARY IMG XR LOWER EXTREMITY F inal Result documented in this encounter Visit Diagnoses Diagnosis Pain in joints Pain in joint, multiple sites Pain in joints Pain in joint, multiple sites documented in this encounter Care Teams Cardiology Specialist Relationship Specialty Start Date End Date Salo Landeros DO [address] [facility] [place] [address] PCP - General Family Medicine 12/27/18 documented as of this encounter Additional Source Comments The information contained in this document represents components of the legal health record. It is not the complete legal health record.[facility]
--- OUTSIDE RECORDS SUMMARY | 2025-05-06 14:38 | XMS_ITS | Encounter Summary ---
Author Organization [facility] Address [address] [place] [phone] Phone Care Team Providers Care Chemical Equipment Repairer Name Role Phone Salo Landeros DO Primary Care Provider Encounter Details Date Type Department Care Team (Late st Contact Info) Description 06/12/2020 Procedure Pass [facility], [address] [address] Social History Tobacco Use Types Packs/Day Years [...] on filedocumented in this encounter Care Teams Chemical Equipment Repairer Relationship Specialty Start Date End Date Salo Landeros DO [address] [facility] [place] [address] PCP - General Family Medicine 12/27/18 documented as of this encounter Additional Source Comments The information contained in this document represents components of the legal health record. It is not the complete legal health record.[facility]
--- OUTSIDE RECORDS SUMMARY | 2025-05-06 14:38 | XMS_ITS | Data Portability ---
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 Plan of Treatment Reminders Order Date Submit Date Provider Last Modified By Organization Details Last Modified Time Details Appointments None recorded. Lab pap test, thinprep, cervical 2016 017 zora [facility], Cytopathology Service, [address] [place], [address], 7 08:58:04 fecal occult blood, stool 2016 017 [email or web address] 1 In-Office Order, Internal Use Only DO Not Attach Compendium DO Not Attach Compendium, Do Not Delete/merge, [id number] 7 08:25:08 pap test, thinprep, cervical 2014 015 BRITTANIE [facility], Cytopathology Service, [address] [place], [address], 5 11:16:19 fecal occult blood, stool 2014 015 [email or web address] 1 In-Office Order, Internal Use Only DO Not Attach Compendium DO Not Attach Compendium, Do Not Delete/merge, [id number] 5 08:34:35 vitamin D 2012 013 BRITTANIE Not available 3 08:18:05 CBC w/diff & platelet 2012 013 BRITTANIE Not available 3 08:18:05 lyme screen 2012 013 BRITTANIE Not available 3 08:18:05 FSH/estra diol 2012 013 BRITTANIE Not available 3 08:18:05 cytology, Pap smear 2012 013 [facility], Cytopathology Service, [address] [place], [address], 3 09:03:47 occult blood, screen 2012 013 [email or web address] 1 In-Office Order, Internal Use Only DO Not Attach Compendium DO Not Attach Compendium, Do Not Delete/merge, [id number] 3 10:25:05 Referral None recorded. Procedures None recorded. Surgeries None recorded. Imaging MAMMO, screening , digital, bilateral 2016 017 [facility]), [facility] [place], [address], 8 13:18:34 US, pelvis, transabdo elva + transvagi nal - right sided pelvic disomfort for a few weeks 2016 017 [facility] ([facility]), [address] [place], [address], 7 13:03:41 bone density study [address] [facility] (Radiology), [address] [place], [address], 6 07:50:51 MAMMO, screening , digital, bilateral 2014 015 [facility] ([facility]), [address] [place], [address], 6 07:50:50 MAMMO, screening , digital, bilateral 2012 013 [facility] (Radiology), [address] [facility], [place], [address], 3 09:04:42 Medication Orders clotrimaz ole-betam ethasone 1 %-0.05 % topical cream 2016 017 INTERFACE [facility], [address] [facility], [place], [address], 7 08:31:31 nystatin 100,000 unit/gram topical powder 2014 015 [email or web address] [facility], [address] [facility], [place], [address], 7 08:06:40 Patient TargetsNo targets recorded. Patient Instructions Encounter Date Encounter Id Patient Instructions Last Modified By Organization Details Last Modified Time 02/01/2013 [id number] She has what is possibly postmenopausal bleeding, [...] in detail. Not available 02/01/2013 10:25:05 02/12/2013 [id number] anemia: care instructions [email or web address] Not available 02/13/2013 07:46:17 She and I spoke at length about nutrition and health, exercise, and life longevity. She is having fatigue and we discussed how anemia plays into this. She is in process of investigation of the anemia with her PCP. He also checked her mild adenopathy and felt it was not clinically significant, but he will follow it. We discussed chronic illness and the benefit of a low fat, high fiber diet, with good balance. We also discussed the various vitamins and supplements that she might benefit from, including vitamin D, a good multivitamin, fish oil, and evening oil of primrose. She is advised to get 1500 mg of calcium daily into her diet and supplements combined. We discussed the benefits of adequate vitamin D supplementation to at least 2000 units daily, daily aerobic exercise of 30 minutes, and stress reduction. The significant health benefits of becoming and [...] answered. Face to face discussion 25 minutes [email or web address] Not available 02/12/2013 16:39:52 12/13/2014 [id number] She is here for annual exam, is doing well. Her anemia was followed by her doctor, [...] her target weight were discussed in detail. [email or web address] Not available 12/13/2014 08:34:36 10/22/2016 [id number] self breast exam education zora Not available 10/22/2016 08:56:00 She is here for annual exam. Her fibromyalgia is stable, her diabetes improved with Trulicity. Her was just disabled from [facility] due to his back injury at [...] DO Not Attach Compendium, Do Not Delete/merge, [id number] 10/22/2016 08:17:03 12/14/19 15 12/13/2014 fecal occul t blood , stool Occult Blood negati ve Not Available In-Office Order Internal Use Only DO Not Attach Compendium DO Not Attach Compendium, Do Not Delete/merge, [id number] 12/13/2014 08:04:22 02/02/20 13 02/01/2013 occul t blood , scree n Occult Blood negati ve Not Available In-Office Order Internal Use Only DO Not Attach Compendium DO Not Attach Compendium, Do Not Delete/merge, [id number] 02/01/2013 08:29:40 02/02/20 13 02/01/2013 pap1c ase [id number] thinp rep Pap, image d: negat khai [...] at the above addre ss. Not Available [facility], Cytopathology Service [address] [place], [address], 02/06/2013 09:36:28 12/14/19 15 12/13/2014 pap, LB [id number] ThinP rep Pap, Image d: NEGAT KHAI [...] at the above addre ss. Not Available [facility], Cytopathology Service [address] [place], [address], 12/17/2014 11:16:19 10/23/19 17 10/22/2016 pap, LB [id number] ThinP rep Pap, Image d: NEGAT KHAI FOR SQUAM OUS INTRA EPITH ELIAL LESIO N AND MALIG VAERY . Mikhail Tavares a, CT( CP) (Case elect nilay rendon martinez d 10 25 2016) ADEQU ACY: Satis facto ry. Endoc ervic al/tr ansfo rmati on zone compo nent prese nt. SOURC E: ThinP rep Pap HPV IF ASCUS , Cervi berenice, Image d: CLINI BERENICE INFOR MATIO N: HPV If Diagn osis of ASCUS . LMP NEG, MENOP AUSE Not Available [facility], Cytopathology Service [address] [place], [address], 10/25/2016 13:41:05 05/02/20 13 04/24/2013 imagi ng/di agnos tic resul t No observ ation record ed. BRITTANIE Not Available 2012 11:35:39 12/21/19 15 12/11/2014 imagi ng/di agnos tic resul t No observ ation record ed. [facility] Not Available 2015 07:31:14 01/01/20 15 12/18/2014 imagi ng/di agnos tic resul t No observ ation record ed. [facility] Not Available 2014 08:22:42 02/16/20 16 02/06/2016 MAMMO , scree harleen, digit al, bilat eral No observ ation record ed. [facility]CODE Not Available 2015 15:12:30 10/31/19 17 10/29/2016 US, pelvi s, trans abdom inal + trans vagin al [place], [address], 11/02/2016 10:02:22 10/19/19 18 MAMMO , scree harleen, digit al, bilat eral No observ ation record ed. Not Available 09/26 13:45:36 Result Notes None recorded. Problems Name Problem SNOMED Code Status Onset Date Resolution Date Notes Provider Name and Address Organization Details Recorded Time Candidiasis of skin 22956647 Active Shikha Garcia MD [address], [place], [address] , [place] [facility], 5 08:34:35 Anemia 968055316 Active Not Available [facility] 3 03:01:07 Postmenopausa l bleeding 71353589 Active Not Available [facility] 3 03:01:07 Menopausal syndrome 863574946 Active Shikha Garcia MD [address] [facility] [address], [place], [address] , [place] - [facility], 5 08:34:35 Malaise and fatigue 325947188 Active Not Available [facility] 3 03:01:07 Vitamin D deficiency 92820721 Active Not Available [facility] 3 03:01:07 Fibromyalgia 992018529 Active 2016 [place] [facility] in [facility], 7 08:16:42 Problem Notes None recorded. Procedures Surgical History Date Name Laterality Status Provider Name and Address Organization Details Recorded Time 12/19/19 15 Most Recent Bone Density completed Luh Piña in [facility], 10/22/2016 08:15:48 06/27/19 04 Other completed Jeanine Piña in [facility], 02/01/2013 08:43:21 06/27/19 00 Appendectomy completed Jeanine Piña in [facility], 02/01/2013 08:43:21 06/27/18 98 Other completed Jeanine Piña in [facility], 02/01/2013 08:43:21 06/27/18 92 Tubal Ligation completed Jeanine Piña in [facility], 02/01/2013 08:43:21 06/27/18 92 Cholecystectomy completed Jeanine Piña in [facility], 02/01/2013 08:43:21 06/27/18 90 Caesarean Section completed Jeanine Piña in [facility], 02/01/2013 08:43:21 Imaging Results None recorded. Procedure Notes None recorded. Medical Equipment None Reported. Allergies Allergen ID Allergen Name Allergen Category Reaction Reaction Severity Criticality Documentation Date Start Date Code Code System Note Provider Name and Address Organization Details Recorded Time 9341 iodine medicatio n other Not available Not available 02/01/2013 5933 RxNorm verti go Jeanine Deangelo higginbotham [place] [facility], 3 08:43:21 Medications Name Sig Start Date [...] Available Not Available Vitals Date Recorded Body weight Heart rate Body height Body mass index (BMI) Systolic And Diastolic Provider Name and Address Organization Details Last Updated DateTime 10/22/2016 725020.8 9 g 72 /min 152.4 cm 48.9 kg/m2 145/66 mm[Hg] Luh Piña in [facility], 10/22/2016 08:14:04 Date Recorded Body weight Heart rate Body mass index (BMI) Body height Systolic And Diastolic Provider Name and Address Organization Details Last Updated DateTime 12/13/2014 061894.5 3828 g 88 /min 47.7 kg/m2 152.4 cm 135/78 mm[Hg] Jeanine Piña in [facility], 12/13/2014 08:03:44 Date Recorded Body height Body weight Body mass index (BMI) Heart rate Systolic And Diastolic Provider Name and Address Organization Details Last Updated DateTime 02/01/2013 152.4 cm 127778.5 7042 g 51.9 kg/m2 62 /min 144/61 mm[Hg] Jeanine Piña in [facility], 02/01/2013 08:29:40 Date Recorded Body height Body weight Body mass index (BMI) Heart rate Systolic And Diastolic Provider Name and Address Organization Details Last Updated DateTime 02/12/2013 152.4 cm 079152.6 00065 g 51.5 kg/m2 81 /min 139/64 mm[Hg] Jeanine Deangelo [facility], 02/12/2013 10:33:54 Social History Question Answer Notes LastModified by [employer] Details LastModified Time Tobacco Smoking Status Never Smoker Not Available [facility] 04/29/2020 03:19:37 What Is Your Level Of Caffeine Consumption? Occasional [id number] Information not available 04/29/2020 What Type Of Diet Are You Following? REGULAR [id number] Information not available 04/29/2020 Which Illicit Or Recreational Drugs Have You Used? No [id number] Information not available 04/29/2020 Do You Reside In Or Have You Traveled To An Area Where Ebola Virus Transmission Is Active? No [id number] Information not available 04/29/2020 Education 4 Year College [email or web address] Information not available 02/01/2013 How Many Days In The Past Year Have You Had A Heavy Drinking Consumption (4+ Female, 5+ Male)? 0 Information not available 10/22/2016 High Number Of Sexual Partners No Information not available 10/22/2016 To Which Gender Do You Self-identify? Female Information not available 10/22/2016 Marital Status [email or web address] Informatio n not available 02/01/2013 Are You Sexually Active? No [id number] Information not available 04/29/2020 How Much Tobacco Do You Smoke? No [id number] Information not available 04/29/2020 General Stress Level High Disabled Information not available 10/22/2016 Have You Recently (within The Last 12 Weeks, Or During A Current ) Traveled To Or Lived In A Zika-affected Area? No Information not available 10/22/2016 Sex: Unknown Functional Status Question Answer Note LastModified by [employer] Details LastModified Time What is your level of alcohol consumption? 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 [employer] Information not available 12/13/2014 What is your exercise level? Moderate [id number] Information not available 04/29/2020 Mental Status None [...] Diagnosis SNOMED-CT Code Diagnosis ICD10 Code Diagnosis IMO Codes Diagnosis Note [id number] MD SHIKHA Freitas MD [address]; [address]) [address] [facility] [address] 02/01/2013 08:17:14 02/01/2013 12:52:13 [id number] MD SHIKHA Freitas MD [address]; to ([address]) [address] [place] [address] 02/12/2013 10:23:40 02/13/2013 09:23:55 [id number] MD SHIKHA Freitas MD [address]; to ([address]) [address] [place] [address] 12/13/2014 07:51:55 12/13/2014 09:39:09 Specialized medical examination 43785717 Screening for malignant neoplasm of rectum 082024960 Screening mammography 31338488 Candidiasis of skin 46588029 Menopausal syndrome 653864213 [id number] MD SHIKHA Freitas MD [address] [facility] [place] [address] 10/22/2016 08:00:50 10/22/2016 11:21:42 Specialized medical examination 42473128 Z01.419 Screening for malignant neoplasm of rectum 709221895 Z12.12 Screening mammography 24 115743 Z12.31 Candidiasis of skin 4988 3006 B37.2 Pain in pelvis 62095277 R10.2 Health Concerns Section Related Observation LastModified by Organization Detai ls LastModified Time None Recorded Concern Status LastModified by Organization Details LastModified Time None Recorded Advance Directives Directive None Recorded Payers Insurance Date Sequence Insurance Name Policy Number Policy Yan Covered Member ID Yan Member ID Guarantor Name 10/22/[address] ([facility]) [id number] Tony Meek [id number] Daphney Meek 10/22/2016 1 [facility] ([facility]) [id number] Daphney Meek [id number] Daphney Meek Notes Date Note Type Note Provider Name and Address Organization Details Recorded Time 02/01/2013 text/html ROS as noted in the HPI Shikha Garcia MD [address] [facility],[address], [place], [address], [place] - [facility], 02/01/2013 10:25:17 02/12/2013 text/html ROS as noted in the HPI Shikha Garcia MD [address] [facility],[address], [place], [address], [place] - [facility], 02/12/2013 16:40:06 12/13/2014 text/html ROS as noted in the HPI Shikha Garcia MD [address] [facility],[address], [place], [address], [place] - [facility], 12/13/2014 09:01:14 10/22/2016 text/html She is here for annual exam. Her fibromyalgia is stable, her diabetes improved with Trulicity. Her was just disabled from [facility] due to his back injury at work. Shikha Garcia MD [address] [facility],[address], [place], [address], [place] [facility], 10/22/2016 09:32:33 OBGyn Episode No OBEpisode recorded.
--- OUTSIDE RECORDS SUMMARY | 2025-05-06 14:39 | XMS_ITS | Clinical Summary ---
Author Organization [facility] Address [address] [place] [phone] Phone Care Team Providers Care [employer] [place] Name Role Phone Salo Landeros DO Primary Care Provider Allergies Active Allergy Reactions Criticality Noted Date Comments Iodine 01/24/2019 Semaglutide 08/15/2019 Sulfa (Sulfonamide Antibiotics) 01/25 Liraglutide 08/15/2019 Medications amLODIPine (NORVASC) 2.5 MG tablet Take 2.5 mg by mouth daily. Active docusate sodium (COLACE) 100 MG capsule Take 100 mg by mouth as needed. Active FREESTYLE LANCETS MISC by Miscellaneous route 3 (three) times a day. Active blood-glucose meter kit by Other route as needed. Use as instructed Active glimepiride (AMARYL) 4 MG tablet Take 6 mg by mouth daily before breakfast. Active levothyroxine (SYNTHROID, LEVOTHROID) 137 MCG tabletIndications: tuesday is half a pill Take 150 mcg by mouth every morning. Indications: tuesday is half a pill Active lisinopril (PRINIVIL,ZESTRIL) 20 MG tablet Take 20 mg by mouth daily. Active metFORMIN (GLUCOPHAGE) 500 MG tablet Take 500 mg by mouth 2 (two) times a day with meals. Active omeprazole (PRILOSEC) 20 MG capsule Take 20 mg by mouth daily. Active dulaglutide (TRULICITY) 1.5 mg/0.5 mL subcutaneous injection Inject 1.5 mg under the skin every 7 days. Active hydroCHLOROthiazid e (HYDRODIURIL) 25 MG tablet Take 25 mg by mouth daily. Active pravastatin (PRAVACHOL) 40 MG tablet Take 40 mg by mouth daily. Active cholecalciferol (VITAMIN D3) 2,000 unit capsule Take 50 mcg by mouth daily. Active Medication-Free TextIndications:Gl ucodown drink Indications: Glucodown drink Active empagliflozin (JARDIANCE) 25 mg tablet Take 25 mg by mouth daily. Active BD ULTRA-FINE MINI PEN NEEDLE 31 gauge x 3/16 Ndle 07/20/19 22 Active insulin degludec U-100 (TRESIBA FLEXTOUCH U-100) injection pen Inject 42 Units under the skin daily. 02/03/20 21 Active levothyroxine (SYNTHROID, LEVOTHROID) 150 MCG tablet Take by mouth. 04/03/20 21 Active Medication-Free TextIndications:cp ap Indications: cpap Ac tive predniSONE (DELTASONE) 10 MG tablet 3 tabs po x 2 days, 2 tabs po x 2 days, 1 tab po x 2 days 12 tablet 06/01/20 22 Active predniSONE (DELTASONE) 5 MG tablet Take 1 tablet (5 mg total) by mouth daily. 30 tablet 06/01/20 22 Active naproxen (NAPROSYN) 500 MG tabletIndications: Primary osteoarthritis of both knees Take 1 tablet (500 mg total) by mouth 2 (two) times a day with meals. As needed for joint pain 60 tablet 11/05/19 23 Active DULoxetine (CYMBALTA) 60 MG capsuleIndications :Fibromyalgia TAKE ONE CAPSULE BY MOUTH DAILY 90 capsule 11/05/19 23 Active hydrOXYchloroQUINE (PLAQUENIL) 200 mg tabletIndications: Rheumatoid arthritis of multiple sites with negative rheumatoid factor TAKE 2 TABLETS (400 MG TOTAL) BY MOUTH DAILY 180 tablet 01/29/20 23 Active cyclobenzaprine (FLEXERIL) 5 MG tabletIndications: Muscle spasm TAKE 1 TO 2 TABLETS BY MOUTH 3 TIMES A DAY NEEDED (IC FLEXERIL) 90 tablet 01/29/20 23 Active gabapentin (NEURONTIN) 100 MG capsuleIndications :Fibromyalgia TAKE 2 CAPSULES (200 MG TOTAL) BY MOUTH NIGHTLY AT BEDTIME 60 capsule 02/04/20 23 Active Active Problems Problem Noted Date Diagnosed Date Elevated C-reactive protein (CRP) 12/16/2021 Overview (12/16/2021): Consistently elevated CRP No evidence of synovitis on exam or signs /symptoms of auto-immune dz Suspect may be due to hyperglycemia. Pt is maintaining close f/u with her medical doctor for BS monitoring and control Assessment & Plan (12/16/2021 10:22 AM EDT): Consistently elevated CRP No evidence of synovitis on exam or signs /symptoms of auto-immune dz Suspect may be due to hyperglycemia. Pt is maintaining close f/u with her medical doctor for BS monitoring and control Will continue to monitor for any synovitis of joints Osteoarthritis of both feet 09/14/2021 Overview (09/14/2021): OA confirmed by XE Severe in midfoot gladys Supportive shoes Weight loss Injection prn Continue Naprosyn May consider surgical fusion at some point Assessment & Plan (12/16/2021 10:15 AM EDT): OA confirmed by XE Severe in midfoot gladys Supportive shoes Weight loss Injection prn Continue Naprosyn BP is stable and normal labs 12/16 May consider surgical fusion at some point Assessment & Plan (09/14/2021 12:25 PM EDT): OA confirmed by XE Severe in midfoot gladys Supportive shoes Weight loss Injection prn Continue Naprosyn May consider surgical fusion at some point Pain in joints 07/10/2021 Assessment & Plan (05/23/2022 6:24 AM EST): Increased joint pain today , especially hands a/w stiffness Repeat labs today to evaluate for an underlying inflammatory component XR bilateral hands Assessment & Plan (07/10/2021 6:29 PM EST): Multiple joint pain with known OA knees UTD XR knees Reporting pain in feet today- check XR NSAID long-term use 03/20/2021 Assessment & Plan (09/14/2021 12:21 PM EDT): Continue Naprosyn which has been helpful BP stable Labs normal 06/16 Repeat labs 2 x year on NSAID- scheuled in November CBC LFT CR Assessment & Plan (03/20/2021 3:10 PM EDT): Take the lowest dose, with least frequency, for shortest time. Remember to take it always with food. Favor topical over oral preparations. Aspirin long-term use 03/20/2021 Assessment & Plan (03/22/2021 7:51 PM EDT): Extra caution entertained after intra-articular steroid injection to make sure that she has secured clot before letting her leave the office. Avoid falls, injuries and cuts. Monitor for excessive bruising and bleeding. On statin therapy 03/20/2021 Assessment & Plan (03/22/2021 7:52 PM EDT): Monitor for muscle tenderness, swelling and weakness Obstructive sleep apnea on CPAP 03/20/2021 Assessment & Plan (03/22/2021 7:54 PM EDT): Continue CPAP nightly. Principles of sleep hygiene reviewed and strongly encouraged. Class 3 severe obesity due t o excess calories with serious comorbidity and body mass index (BMI) of 45.0 to 49.9 in adult 03/20/2021 Assessment & Plan (03/22/2021 7:53 PM EDT): Portion control. Limit concentrated sugars, saturated fats and calories in the diet. Keep well-hydrated. If unable to achieve expected goal consider formal dietary/nutritional support. Muscle spasm 03/20/2021 Assessment & Plan (03/22/2021 7:53 PM EDT): Proper hydration. Well-balanced nutritionally diet-rich in vitamins, electrolytes, micro and ultra elements. Gentle, regular stretching and muscle massage after warm pack or warm shower. Carefully use Flexeril mostly at night to avoid decreased response time and concentration. Incomplete tear of right rotator cuff 07/02/2020 Assessment & Plan (08/27/2020 11:33 AM EST): Patient had rotator cuff surgery one week ago. Shoulder in protective sling. She will being Physical therapy rehab starting the . Primary osteoarthritis of right shoulder 020 Assessment & Plan (12/19/2020 2:41 PM EDT): Continue Meloxicam 15 mg Take one pill PO daily with food. Assessment & Plan (08/27/2020 11:30 AM EST): Continue Naproxen 500 mg Take one pill PO BID with food for OA pain relief. 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 This is a well described FM tender point Will hold off on XR Assessment & Plan (09/14/2021 12:21 PM EDT): FM appears better controlled with addition of Gabapentin 200 mg q hs Using CPAP consistently Cymbalta helpful for mood May use low dose Flexeril prn Reviewed potential side effects of Gabapentin including but not limited to: drowsiness, dizziness, Has, blurred vision, balance issues, weight gain Encouraged daily exercise Assessment & Plan (07/10/2021 6:27 PM EST): FM appears active with widespread pain Using CPAP consistently Cymbalta helpful for mood Trial of gabapentin 100 mg q hs -hold Flexeril Gabapentin dose may be titrated prn, Need to watch weight Reviewed potential side effects of Gabapentin including but not limited to: drowsiness, dizziness, Has, blurred vision, balance issues, weight gain Initial: 100 mg q hs Encouraged daily exercise Assessment & Plan (03/22/2021 7:50 PM EDT): We discussed the diagnosis of fibromyalgia, its natural history, and treatment. Specifically, we discussed that treatment requires many interventions and recognition that we are often unable to get patients completely pain free. Management of fibromyalgia requires patient engagement to address any underlying depression, anxiety, or sleep disorder. Further, patients are encouraged to engage in regular physical activity. Some studies have suggested that Richard Chi is effective. Other physical activity may including water-based aerobics, walking, swimming, biking, gentle yoga, Pilates etc. In terms of pharmacotherapy, there are many options, including tricyclic antidepressants, duloxetine, gabapentin or pregabalin, and cyclobenzaprine as well as other similar medications to those listed. In this case, the patient might try to focus on nonpharmacologic measures in view of her other medical conditions for which she already takes prescription medications that may increase the risk of side effects. She would benefit greatly from reading and using management strategies described in book written by Dr Brandon Terry Full catastrophe living based on mindfulness approach. Assessment & Plan (12/19/2020 2:43 PM EDT): Continue Good sleep routine. Continue Flexeril 5 mg 2 pills PO qhs as sleep aid, and one during the daytime for muscle tenderness relief of Fibromyalgia. Patient will begin swimming and new home exercise program with warmer weather now here. Assessment & Plan (08/27/2020 11:32 AM EST): Continue Cymbalta 60 mg once daily. Continue Flexeril 5 mg 2 pills PO qhs for sleep aid. One pill PO during the day for right shoulder rotator cuff tenderness. Primary osteoarthritis of both knees 02/07/2019 Assessment & Plan (05/23/2022 6:19 AM EST): Severe OA by XR May consider replacements F/u with ortho prn May repeat injections prn Unlikely viscosuplementation would be effective Weight loss encouraged Assessment & Plan (12/16/2021 10:14 AM EDT): Severe OA by XR May consider replacements F/u with ortho as planned May repeat injection Unlikely viscosuplementation would be effective Weight loss Assessment & Plan (09/14/2021 12:23 PM EDT): Severe OA by XR May consider replacements F/u with ortho May repeat injection Unlikely viscosuplementation would be effective Weight loss Assessment & Plan (03/20/2021 3:09 PM EDT): Procedure: After an informed oral consent, under sterile conditions using Ethyl chloride spray for local anesthesia I have injected 40 mg DepoMedrol and 2 cc 1% Lidocaine into Right knee from infero-lateral approach uneventfully. Details of post-procedure care were explained to the patient in the office and given in writing. Provider: Vickie Winters MD Patient: Daphney Meek : 1960 Date: 03/20/2021 Assessment & Plan (12/19/2020 2:41 PM EDT): Continue Meloxicam 15 mg Take one pill PO daily with food. Assessment & Plan (08/27/2020 11:31 AM EST): Continue Naproxen 500 mg Take one pill PO BID with food for OA pain relief. Immunizations Immunization Administration Dates Next Due COVID-19 (Pre-04/18) Pfizer Vaccine, mRNA, PF ,10/12/2020 Family History Medical History Relation Comments Diabetes Father Atrial fibrillation Mother Diabetes Mother Heart attack Paternal Aunt Relation Status Comments Father Alive Mother Alive Paternal Aunt Social History Tobacco Use Types Packs/Day Years Used Date Smoking Tobacco: Never Smokeless Tobacco: Never Education Answer Date Recorded Are you interested in more education? Not on denny e 10/22/2022 Are you concerned about learning? Not on file 10/22/2022 No 10/22/2022 No 10/22/2022 Digital Access Answer Date Recorded No 11/17/2022 No 11/17/2022 Reliable internet access at home? Not on file 11/17/2022 Device with a working camera? Not on file Comments No Sex and Gender Information Value Date Recorded Sex Assigned at Female 03/18/2021 2:33 AM EDT Legal Sex Female 3:28 PM EDT Gender Identity Female 03/18/2021 2:33 AM EDT Sexual Orientation Not on file Last Filed Vital Signs Vital Sign Reading Time Taken Comments Blood Pressure 126/68 05/13/2022 2:41 PM EST Pulse 114 05/13/2022 2:41 PM EST Temperature 36.2 C (97.2 F) 09/14/2021 11:34 AM EDT Respiratory Rate 16 05/13/2022 2:41 PM EST Oxygen Saturation 98% 05/13/2022 2:4 1 PM EST Inhaled Oxygen Concentration - - Weight 117.3 kg (258 lb 9.6 oz) 022 2:41 PM EST with shoes Height 152.4 cm (5') 05/13/2022 2:41 PM EST Body Mass Index 50.5 05/13/2022 2:41 PM EST Plan of Treatment Health Maintenance Due Date Last Done Comments Adult Td,Tdap Booster 1960 TSH LEVEL 1960 DEPRESSION SCREENING 1973 HEPATITIS C SCREENING 1979 HIV ONE-TIME SCREENING (18-65 YEARS) 1979 PAP SMEAR 1982 SCREENING FOR DIABETES 1996 MAMMOGRAM 2001 COLOGUARD 2006 COLONOSCOPY 2006 COLORECTAL CANCER SCREENING 2006 FIT TEST 2006 FOBT 2006 SIGMOIDOSCOPY 2006 VIRTUAL COLONOSCOPY 2006 PNEUMOCOCCAL VACCINES (50+ years) (1 of 1 - PCV) 2011 RSV VACCINE (1 - Risk 50-74 years 1-dose series) 2011 CREATININE LEVEL 05/13/2023 05/13/2022, , 06/09/2021, Additional history exists POTASSIUM LEVEL 05/13/2023 05/13/2022, 11/25, 06/09/2021, Additional history exists LIPID PANEL 02/08/2024 02/07/2019, 02/07/2019 INFLUENZA VACCINE (#1) 2025 COVID-19 VACCINE ( season) 2025 11/02/2020, 10/12/2020 ZOSTER VACCINES Completed 10/08/2021, 02/06/2021 SMOKING STATUS SCREENING (Once After 26 Yrs) Completed 12/14/2021 HEPATITIS A VACCINES Aged Out No long er eligible based on patient's age to complete this topic HIB VACCINES Aged Out No longer eligi ble based on patient's age to complete this topic IPV VACCINES Aged Out No longer eligi ble based on patient's age to complete this topic MENINGOCOCCAL VACCINES (ACWY) Aged Out No longer eligible based on patient's age to complete this topic MENINGOCOCCAL VACCINES (B) Aged Out N o longer eligible based on patient's age to complete this topic Medical Devices Not on file Procedures Procedure Name Priority Date/Time Associated Diagnosis Comments COMPREHENSIVE METABOLIC PANEL (CMP) Routine 05/13/2022 3:43 PM EST Pain in joints LIPID PANEL Routine 02/07/2019 3:50 PM EDT Fibromyalgia Primary osteoarthritis of both knees from Last 3 Months or Most Recently Relevant to Health Maintenance Results * (ABNORMAL) Comprehensive metabolic panel (05/13/2022 3:43 PM EST) SODIUM 136 133 - 146 mmol/L [facility] POTASSIUM 4.9 3.3 - 5.1 mmol/L [facility] CHLORIDE 101 96 - 108 mmol/L [facility] CO2 23 21 - 35 mmol/L [facility] BUN 27(H) 6 - 19 mg/dL [facility] CREATININE 1.00 0.5 - 1.5 mg/dL [facility] GLUCOSE 166(H) 70 - 99 mg/dL [facility] ALBUMIN 3.9 3.9 - 4.8 g/dL [facility] TOTAL PROTEIN 7.1 6.5 - 8.0 g/dL [facility] CALCIUM 10.0 8.4 - 10.3 mg/dL [facility] ALKALINE PHOSPHATASE 125(H) 39 - 117 U/L [facility] TOTAL BILIRUBIN 0.2 0.0 - 1.2 mg/dL [facility] AST 13 0 - 37 U/L [facility] ALT 11 0 - 40 U/L [facility] GLOBULIN 3.2 1 - 4.8 g/dL [facility] EGFR 64 >59 mL/min/1.[address] [facility] Comment:Estimated glomerular filtration rate calculated using the CKD-EPI refit equation. ANION GAP 17 10 - 20 mmol/L [facility] Blood 05/13/2022 3:43 PM EST 05/13/2022 3:52 PM EST us Cecilia [facility] BLOOD BKR ORDERABLES Final Result Performing Organization Address [facility]/ZIP Co de Phone Number [address] [address] * (ABNORMAL) Lipid panel (02/07/2019 3:50 PM EDT) HDL 41 mg/dL [facility] Comment: Interpretation <40 mg/dL: Low HDL cholesterol (major risk factor for CHD) Greater than or equal to 60 mg/dL: High HDL cholesterol ( negative risk factor for CHD) HDL - cholesterol is affected by a number of factors, e.g. smoking, excerise, hormones, sex and age. CHOLESTEROL 229 0 - 240 mg/dL [facility] TRIGLYCERIDES 432(H) 30 - 160 mg/dL [facility] LDL NOT CALCULATED 50 - 129 mg/dL [facility] Comment: Unable to calculate due to elevated TRIG of greater than 400. A measured LDL will be performed. CARDIAC RISK RATIO 5.6(H) 3.3 - 4.[address] [facility] Blood 02/07/2019 3:50 PM EDT 02/07/2019 3:56 PM EDT us Wade [facility] BLOOD BKR ORDERABLE S Final Result Performing Organization Address [facility]/ZIP Co de Phone Number [address] [phone] from Last 3 Months or Most Recently Relevant to Health Maintenance Insurance [employer]HER [employer] TOGETHER [employer]HER [employer] Care Teams [employer] [place] Relationship Specialty Start Date End Date Salo Landeros DO [address] [place] [address] [place] [address] PCP - General Family Medicine 12/27/18 Additional Source Comments The information contained in this document represents components of the legal health record. It is not the complete legal health record.[facility]
== END 2025-05-06 12:24 | disposition home or self-care (01) ==
LOC: HO.MAMMO 12:23
PROVIDERS: PCP Internal Medicine; Visit Provider Internal Medicine
DX: Z12.31 Encounter for screening mammogram for malignant neoplasm of breast (principal)
CPT/HCPCS: 77063; 77067

== ENCOUNTER → 2025-05-06 12:30 | Outpatient (BNV) | payer OTHER, SELFPAY | PROVIDERS: PCP Internal Medicine; Visit Provider Internal Medicine | DX: Z12.31 Encounter for screening mammogram for malignant neoplasm of breast (principal) | CPT/HCPCS: 77063; 77067 ==